=== PATIENT | female | born 1935 | race Hispanic/Latino ===

== ENCOUNTER 2018-01-25 16:38 | Inpatient (IN) | payer BC, MEDICARE ==
[2018-01-25 16:42] VITALS: BMI 30.2
[2018-01-25] MEDS ORDERED: Morphine 4 MG/ML VIAL IV STA (17:05)
--- NOTE | 2018-01-25 17:05 | C.PDOC ---
History Of Present Illness 82 y/o F with a PMHx of dementia, sent to the ED by PMD Dr. Jj due to generalized weakness and failure to thrive. All history obtained from patients family at bedside. Family reports the patient suffered a hip fracture 4 months ago and ever since has had worsening failure to thrive. Reports patient was compliant with PT and OT, but since completing therapy patient has been bed bound and refusing to get up. Patient has now developed a sacral decubitus ulcer , with increasing weakness and fatigued. Time Seen by Provider: 01/25/18 16:50 Chief Complaint (Nursing): Abnormal Skin Integrity History Per: Patient History/Exam Limitations: clinical condition (dementia) Onset/Duration Of Symptoms: Days Current Symptoms Are (Timing): Still Present Additional History Per: Family Past Medical History Reviewed: Historical Data, Nursing Documentation, Vital Signs Vital Signs: Last Vital Signs Temp 97.6 F 01/25/18 16:45 Pulse 97 H 01/25/18 16:45 Resp 20 01/25/18 16:45 BP 114/73 01/25/18 16:45 Pulse Ox 95 01/25/18 17:18 - Medical History PMH: Dementia, Fractures (Hip fx) Surgical History: Cholecystectomy Family History: States: Unknown Family Hx - Social History Hx Tobacco Use: No Hx Alcohol Use: No Hx Substance Use: No - Immunization History Hx Tetanus Toxoid Vaccination: No Hx Influenza Vaccination: No Hx Pneumococcal Vaccination: No Review Of Systems Review Of Systems: ROS cannot be obtained secondary to pt's inabilty to answer questions. (secondary to dementia) Constitutional: Negative for: Fever Cardiovascular: Negative for: Chest Pain Respiratory: Negative for: Shortness of Breath Gastrointestinal: Negative for: Vomiting, Diarrhea Musculoskeletal: Positive for: Back Pain (near sacral decubitus) Skin: Positive for: Other (ulcer to left ankle and hip) Neurological: Positive for: Weakness Physical Exam - Physical Exam Appears: No Acute Distress, Chronically Ill Skin: Warm, Dry Head: Atraumatic, Normacephalic Eye(s): bilateral: Normal Inspection Oral Mucosa: Moist Neck: Normal ROM Chest: Symmetrical Cardiovascular: Rhythm Regular, No Murmur Respiratory: Normal Breath Sounds, No Rales, No Rhonchi, No Wheezing Gastrointestinal/Abdominal: Soft, No Tenderness, No Distention Back: No Vertebral Tenderness, Other (Stage III sacral decubitus) Extremity: Normal ROM (moving all extremities), Capillary Refill (< 2 sec), Other (pressure ulcers to left lateral malleolus and left hip) Pulses: Left Dorsalis Pedis: Normal, Right Dorsalis Pedis: Normal Neurological/Psych: Other (Awake, alert) ED Course And Treatment - Laboratory Results Result Diagrams: 01/25/18 17:49 01/25/18 17:49 O2 Sat by Pulse Oximetry: 95 (on RA) Pulse Ox Interpretation: Normal Medical Decision Making Medical Decision Making: Impression: 82 year old female sent by PMD for fatigue, weakness, failure to thrive. PMD reports foul smelling urine so will give one dose of rocephin pending uculture. Plan: * CMP * CBC * Blood and urine cultures * Urinalysis * IV fluids * Morphine 4 mg IV Patient accepted to Dr. Jj's service, with PT consult requested Disposition - Disposition Disposition: HOSPITALIZED Disposition Time: 18:28 Condition: FAIR - Clinical Impression Clinical Impression: Failure to thrive, Sacral ulcer, UTI (urinary tract infection) - Scribe Statement The provider has reviewed the documentation as recorded by the Scribe (Mayte Clancy) Provider Attestation: All medical record entries made by the Scribe were at my direction and personally dictated by me. I have reviewed the chart and agree that the record accurately reflects my personal performance of the history, physical exam, medical decision making, and the department course for this patient. I have also personally directed, reviewed, and agree with the discharge instructions and disposition.
[2018-01-25] MEDS ORDERED: Sodium Chloride 0.9% 1,000 ML IV ONE (17:06)
[2018-01-25 17:54] LABS: BASO # 0.1 K/uL (0.0-0.2); BASO % 0.5 % (0.0-2.0); EOS # 0.2 K/uL (0.0-0.7); EOS % 1.4 % (0.0-4.0); HEMOGLOBIN 10.1 g/dL (11.0-16.0); LYMPH # 1.9 K/uL (1.0-4.3); LYMPH % 17.3 % (20.0-40.0); MEAN CELL VOLUME 84.9 fL (81.0-99.0); MEAN CORPUSCULAR HEMOGLOBIN 27.7 pg (27.0-31.0); MEAN CORPUSCULAR HGB CONC 32.7 g/dL (33.0-37.0); MEAN PLATELET VOLUME 7.6 fL (7.2-11.7); MONO # 0.8 K/uL (0.0-0.8); MONO % 7.7 % (0.0-10.0); NEUT # 8.1 K/uL (1.8-7.0); NEUT % 73.1 % (50.0-75.0); RBC 3.66 Mil/uL (3.80-5.20); RED CELL DISTRIBUTION WIDTH 15.2 % (11.5-14.5); WHITE BLOOD COUNT 11.1 K/uL (4.8-10.8)
[2018-01-25 18:01] LABS: SQUAMOUS EPITHIAL 2 /hpf (0-5); URINE BACTERIA MANY (<OCC); URINE BILIRUBIN NEGATIVE (NEGATIVE); URINE BLOOD 1+ (NEGATIVE); URINE CLARITY Hazy (Clear); URINE COLOR Amber (YELLOW); URINE GLUCOSE (UA) NORMAL (Normal); URINE LEUKOCYTE ESTERASE NEG Leu/uL (Negative); URINE PROTEIN NEGATIVE (NEGATIVE)
[2018-01-25 18:07] LABS: ALB/GLOB RATIO 0.9 (1.0-2.1); ALBUMIN 2.8 g/dL (3.5-5.0); ALT/SGPT 28 U/L (9-52); AST/SGOT 31 U/L (14-36); BLOOD UREA NITROGEN 25 mg/dL (7-17); CALCIUM 8.5 mg/dl (8.6-10.4); GFR NON-AFRICAN AMERICAN > 60
[2018-01-25] MEDS ORDERED: Potassium Chloride 20 mEq ER Tab PO STA (18:07)
[2018-01-25] MEDS ORDERED: cefTRIAXone IV 1 gm in Dextros 50 ML IVPB ONE (18:07)
[2018-01-25] MEDS ORDERED: Potassium Chloride 20 mEq ER Tab PO ONE (18:49)
[2018-01-25] MEDS ORDERED: cefTRIAXone 1 gm 1 GM/100 ML BAG IVPB ONE (18:49)
[2018-01-25 19:37] VITALS: RESP 20
--- NOTE | 2018-01-25 20:32 | CP.PCM.HP ---
History of Present Illness - History of Present Illness History of Present Illness: Chief complaint: Worsening sacral decubiti HPI: Patient is a 82-year-old female with history of anemia in the past, and also recent history of left trochanteric fracture, status post ORIF, following that the patient become mostly bedbound, in the house. Postoperatively patient was in the hospital, and was sent to home and received physical exercise and therapy in the house. Initially she was doing well. But later she started having worsening overall condition. Family was taking care of her in the house. Patient has hospital bed. But for the course of 3 days family noticed that the blister formation in the sacral area, gradually getting worse, and got black eschar now. She was also having significant skin changes in the both heel, both feet, and also in the left ankle. Patient was seen by weighmaster in the house. Patient now having increasing symptoms. Pain. Head legs and knees are contracted. Past medical history: Dementia, hypertension, anemia. Allergy no known drug allergy Personal history non-smoker nonalcoholic Patient is currently living in the house with the family. Review of system: Patient is somewhat confused. Dementia noted. Patient also has a severe contracted knees on bilateral. 's skin wounds noted. On examination: Patient is somewhat confused. Disoriented. Answering simple questions. Weight loss noted. Patient is somewhat dehydrated. Mucous membrane dryness noted. Chest good air entry Regular heart sounds Nontender abdomen. Patient has at least quarter size sacral decubiti involving in the sacral area, with the surrounding erythema. Also there is a skin excoriation in the medial aspect of the lower one third of the leg left side. Also noticed both feet on medial side of the foot showing black eschar especially heel as well as base of the first metatarsal bilaterally. Most likely patient has a stage II, and stage III decubiti Patient labs reviewed Urine analysis showing evidence of possible UTI Assessment: 82-year-old female with a history of anemia. History of dementia. Recent hip fracture. Now complicated with contractures of the bilateral knee and hips. Also bedridden. Now with worsening sacral decubiti. Malnourishment. Poor nutrition. Urinary tract infection likely acute associate with the some altered mental status mild. I suggested that patient needs to get antibiotic. Patient will need evaluation by the wound surgeon management. He will production P DVT prophylaxis. Feeding with assistance. Aspiration precautions. Patient will need home physical exercise. Further home care. And also management to avoid further worsening and healing the sacral decubiti. Protein supplementation and will follow the patient Present on Admission - Present on Admission Any Indicators Present on Admission: No History of DVT/PE: No History of Uncontrolled Diabetes: No Urinary Catheter: No Decubitus Ulcer Present: No Past Patient History - Past Medical History & Family History Past Medical History?: Yes - Past Social History Smoking Status: Never Smoked - NEUROLOGICAL Hx Dementia: Yes - MUSCULOSKELETAL/RHEUMATOLOGICAL Hx Falls: Yes - PSYCHIATRIC Hx Substance Use: No - SURGICAL HISTORY Hx Cholecystectomy: Yes - ANESTHESIA Hx Anesthesia: Yes Hx Anesthesia Reactions: No Hx Malignant Hyperthermia: No Meds Allergies/Adverse Reactions: Allergies Allergy/AdvReac Type Severity Reaction Status Date / Time No Known Allergies Allergy Verified 01/25/18 16:41 Results - Vital Signs Recent Vital Signs: Last Vital Signs Temp 98.2 F 01/25/18 19:36 Pulse 86 01/25/18 19:36 Resp 20 01/25/18 19:36 BP 166/83 H 01/25/18 19:36 Pulse Ox 96 01/25/18 19:36 - Labs Result Diagrams: 01/25/18 17:49 01/25/18 17:49 Labs: Laboratory Results - last 24 hr 01/25/18 01/25/18 01/25/18 17:49 17:49 17:49 WBC 11.1 H RBC 3.66 L Hgb 10.1 L Hct 31.0 L MCV 84.9 MCH 27.7 MCHC 32.7 L RDW 15.2 H Plt Count 459 H MPV 7.6 Neut % (Auto) 73.1 Lymph % (Auto) 17.3 L [place] % (Auto) 7.7 Eos % (Auto) 1.4 Baso % (Auto) 0.5 Neut # (Auto) 8.1 H Lymph # (Auto) 1.9 [place] # (Auto) 0.8 Eos # (Auto) 0.2 Baso # (Auto) 0.1 Sodium 144 Potassium 3.5 L Chloride 106 Carbon Dioxide 28 Anion Gap 13 BUN 25 H Creatinine 0.6 L Est GFR ( Amer) > 60 Est GFR (Non-Af Amer) > 60 Random Glucose 116 H Calcium 8.5 L Total Bilirubin 0.7 AST 31 ALT 28 Alkaline Phosphatase 89 Total Protein 5.9 L Albumin 2.8 L Globulin 3.1 Albumin/Globulin Ratio 0.9 L Urine Color Sandy Urine Clarity Hazy Urine pH 5.0 Ur Specific [place] 1.020 Urine Protein Negative Urine Glucose (UA) Normal Urine Ketones Trace Urine Blood 1+ H Urine Nitrate Negative Urine Bilirubin Negative Urine Urobilinogen 4.0 H Ur Leukocyte Esterase Neg Urine WBC (Auto) 8 H Urine RBC (Auto) 1 Ur Squamous Epith Cells 2 Urine Bacteria Many H
[2018-01-26] MEDS ORDERED: Collagenase 250 Units/gm Ointment(30 gm) TOP SCH (10:00)
[2018-01-26] MEDS: Enoxaparin 40 mg Syringe SC SCH (10:04)
--- NOTE | 2018-01-26 13:24 | CP.PCM.CON ---
History of Present Illness - History of Present Illness History of Present Illness: Podiatry Consult note: Dr. Boggs 82 year old female patient with PMHx of Dementia, hypertension, anemia was seen and evaluated with granddaughter at bedside for stable non-infected ulceration to the left leg and heel. Patient's granddaughter reports that she fell at home few months ago and sustained a left trochanteric fracture. States that she received a ORIF on the left hip. Reports that she mainly became bed bound after the incident and developed a sacral ulcer which may have became infected. Granddaughter reports that she was brought to the hospital for the sacral wound. Patient is alert and awake but does not respond to verbal stimuli. Appears to be resting comfortably in bed and appears in no acute distress. Granddaughter reports that she has very small blister on the left leg and heel for which she was seen by a proj mgr at home. Denies of the patient complaining of pain from the left LE. No recent F/N/V/C/SOB/CP/headache. Denies of any other pedal complains at this time. PMHx: Dementia, hypertension, anemia PSHx: Left hip ORIF Allergies: NKDA SHx: Denies smoking, EtOH or illicit drug usage, lives home with family Review of Systems - Constitutional Constitutional: As Per HPI Past Patient History - Past Medical History & Family History Past Medical History?: Yes - Past Social History Smoking Status: Never Smoked - NEUROLOGICAL Hx Dementia: Yes - MUSCULOSKELETAL/RHEUMATOLOGICAL Hx Falls: Yes - PSYCHIATRIC Hx Substance Use: No - SURGICAL HISTORY Hx Cholecystectomy: Yes - ANESTHESIA Hx Anesthesia: Yes Hx Anesthesia Reactions: No Hx Malignant Hyperthermia: No Meds Allergies/Adverse Reactions: Allergies Allergy/AdvReac Type Severity Reaction Status Date / Time No Known Allergies Allergy Verified 01/25/18 16:41 - Medications Medications: Current Medications Collagenase (Santyl) 0 gm TOP DAILY [facility] Last Admin: 01/26/18 10:06 Dose: 1 applic Enoxaparin Sodium (Lovenox) 40 mg SC DAILY [facility] Last Admin: 01/26/18 10:04 Dose: 40 mg Famotidine (Pepcid) 20 mg PO DAILY [facility] Last Admin: 01/26/18 10:03 Dose: 20 mg Ceftriaxone Sodium 1 gm/ (Sodium Chloride) 100 mls @ 100 mls/hr IVPB DAILY [facility] PRN Reason: Protocol Last Admin: 01/26/18 10:03 Dose: 100 mls/hr Pneumococcal Polyvalent Vaccine (Pneumovax 23 Vaccine) 0.5 ml IM .ONCE ONE Stop: 01/28/18 12:28 Physical Exam - Constitutional Appears: Well, Non-toxic, No Acute Distress - Extremities Exam Additional comments: Patient resting in bed with head, hips, and knees contracted Bilateral LE exam VASC: DP/PT pulses are palpable 2/4, Cap refill time: < 3 sec to all digits, Temp gradient: warm to cool from proximal to distal, no pitting or non-pitting edema noted DERM: Circular wound measuring approx. 1 cm x 1 cm x 0.2 cm noted on the medial aspect of the left heel, wound base is mainly grannular with island of necrosis in the center, no active drainage, no malodor, no purulence, no tunneling, no tracking, no jeanmarie-wound erythema, no jeanmarie-wound maceration or hyperkeratosis, no clinical suspicion of active infection; Very superficial epidermal shedding on the medial aspect of the left distal leg, no active drainage, no clinical suspicion of active infection NEURO: Protective sensation grossly intact ORTHO: AROM at the ankle joint within normal limit, mild pain on palpation of the heel wound - Neurological Exam Neurological exam: Alert, Oriented x3 - Psychiatric Exam Psychiatric exam: Normal Affect, Normal Mood Results - Vital Signs Recent Vital Signs: Last Vital Signs Temp 98.4 F 01/26/18 11:54 Pulse 89 01/26/18 11:54 Resp 20 01/26/18 11:54 BP 149/94 H 01/26/18 11:54 Pulse Ox 97 01/26/18 11:54 - Labs Result Diagrams: 01/25/18 17:49 01/25/18 17:49 Labs: Laboratory Results - last 24 hr 01/25/18 01/25/18 01/25/18 17:49 17:49 17:49 WBC 11.1 H RBC 3.66 L Hgb 10.1 L Hct 31.0 L MCV 84.9 MCH 27.7 MCHC 32.7 L RDW 15.2 H Plt Count 459 H MPV 7.6 Neut % (Auto) 73.1 Lymph % (Auto) 17.3 L [place] % (Auto) 7.7 Eos % (Auto) 1.4 Baso % (Auto) 0.5 Neut # (Auto) 8.1 H Lymph # (Auto) 1.9 [place] # (Auto) 0.8 Eos # (Auto) 0.2 Baso # (Auto) 0.1 Sodium 144 Potassium 3.5 L Chloride 106 Carbon Dioxide 28 Anion Gap 13 BUN 25 H Creatinine 0.6 L Est GFR ( Amer) > 60 Est GFR (Non-Af Amer) > 60 Random Glucose 116 H Calcium 8.5 L Total Bilirubin 0.7 AST 31 ALT 28 Alkaline Phosphatase 89 Total Protein 5.9 L Albumin 2.8 L Globulin 3.1 Albumin/Globulin Ratio 0.9 L Urine Color [place] Urine Clarity Hazy Urine pH 5.0 Ur Specific [place] 1.020 Urine Protein Negative Urine Glucose (UA) Normal Urine Ketones Trace Urine Blood 1+ H Urine Nitrate Negative Urine Bilirubin Negative Urine Urobilinogen 4.0 H Ur Leukocyte Esterase Neg Urine WBC (Auto) 8 H Urine RBC (Auto) 1 Ur Squamous Epith Cells 2 Urine Bacteria Many H Assessment & Plan - Assessment and Plan (Free Text) Assessment: 82 year old female with PMHx of dementia, hypertension, anemia was evaluated for non-infected left LE wound (Mtz 1) secondary to pressure Plan: Patient seen and evaluated Discussed plan with attending Dr. Boggs Labs, vitals and charts reviewed - afebrile, elevated leukocytosis Patient is currently on ceftriaxone qd - ID on board Lower extremity wound appear non-infected at this time Wounds cleaned with saline and dressing applied using medihoney, DSD Santyl ordered Patient is stable from podiatry standpoint No acute intervention needed at this time Will continue to provide local wound care while patient is in house Thank you for the podiatry consult and allowing to take part in patient care - Date & Time Date: 01/26/18 Time: 13:39
[2018-01-27] MEDS: Enoxaparin 40 mg Syringe SC SCH (10:32)
[2018-01-27] MEDS: Collagenase 250 Units/gm Ointment(30 gm) TOP SCH (11:06)
--- NOTE | 2018-01-27 13:56 | CP.PCM.PN ---
Subjective - Date & Time of Evaluation Date of Evaluation: 01/27/18 Time of Evaluation: 13:53 - Subjective Subjective: Podiatry Progress note: Dr. Boggs 82 F seen and evaluated with Dr. Boggs at bedside for stable non-infected ulcerations to the left leg and heel. Appears to be resting comfortably in bed and in no acute distress. Patient's granddaughter and son at bedside during visitation. Patient is awake. No recent F/N/V/C/SOB/CP/headache. Denies of any other pedal complains at this time. Objective - Vital Signs/Intake and Output Vital Signs (last 24 hours): Temp Pulse Resp BP Pulse Ox 98 F 86 20 156/69 H 96 01/27/18 08:12 01/27/18 08:12 01/27/18 08:12 01/27/18 08:12 01/27/18 08:12 Intake and Output: 01/27/18 01/27/18 06:59 18:59 Intake Total 220 Balance 220 - Medications Medications: Current Medications Collagenase (Santyl) 0 gm TOP DAILY [facility] Last Admin: 01/27/18 11:06 Dose: 1 applic Enoxaparin Sodium (Lovenox) 40 mg SC DAILY [facility] Last Admin: 01/27/18 10:32 Dose: 40 mg Famotidine (Pepcid) 20 mg PO DAILY [facility] Last Admin: 01/27/18 10:32 Dose: 20 mg Ceftriaxone Sodium 1 gm/ (Sodium Chloride) 100 mls @ 100 mls/hr IVPB DAILY [facility] PRN Reason: Protocol Last Admin: 01/27/18 10:32 Dose: 100 mls/hr Pneumococcal Polyvalent Vaccine (Pneumovax 23 Vaccine) 0.5 ml IM .ONCE ONE Stop: 01/28/18 12:28 - Labs Labs: 01/25/18 17:49 01/25/18 17:49 - Constitutional Appears: Well, Non-toxic, No Acute Distress - Extremities Exam Extremities Exam: absent: Calf Tenderness Additional comments: Patient resting in bed with head, hips, and knees contracted Bilateral LE exam VASC: DP/PT pulses are palpable 2/4, Cap refill time: < 3 sec to all digits, Temp gradient: warm to cool from proximal to distal, no pitting or non-pitting edema noted DERM: Circular wound measuring approx. 1 cm x 1 cm x 0.2 cm noted on the medial aspect of the left heel, wound base is mainly grannular with island of necrosis in the center, no active drainage, no malodor, no purulence, no tunneling, no tracking, no jeanmarie-wound erythema, no jeanmarie-wound maceration or hyperkeratosis, no clinical suspicion of active infection; Very superficial epidermal shedding on the medial aspect of the left distal leg, no active drainage, no clinical suspicion of active infection NEURO: Protective sensation grossly intact ORTHO: AROM at the ankle joint within normal limit, mild pain on palpation of the heel wound - Neurological Exam Neurological Exam: Awake - Psychiatric Exam Psychiatric exam: Normal Affect, Normal Mood Assessment and Plan - Assessment and Plan (Free Text) Assessment: 82 year old female with PMHx of dementia, hypertension, anemia was evaluated for non-infected left LE wound (Mtz 1) secondary to pressure Plan: Patient seen and evaluated with attending Dr. Boggs Labs, vitals and charts reviewed Patient is currently on ceftriaxone qd - ID on board Lower extremity wound appear non-infected at this time Wounds cleaned with saline, applied Santyl, dsd, abd and kerlix Patient is stable from podiatry standpoint No surgical intervention needed at this time Will continue to provide local wound care while patient is in house
[2018-01-28] MEDS: Enoxaparin 40 mg Syringe SC SCH (09:49)
[2018-01-28] MEDS: Collagenase 250 Units/gm Ointment(30 gm) TOP SCH (11:30)
[2018-01-28] MEDS ORDERED: Pneumococcal 23-Valent Vaccine IM ONE (12:27)
--- NOTE | 2018-01-28 14:46 | CP.PCM.PN ---
Subjective - Date & Time of Evaluation Date of Evaluation: 01/28/18 Time of Evaluation: 16:12 - Subjective Subjective: Podiatry Progress note: Dr. Boggs 82 F seen and evaluated with Dr. Boggs at bedside for stable non-infected multiple ulcerations to the lower left leg and heel. Appears to be resting comfortably in bed and in no acute distress. Patient's son at bedside during visitation. No recent F/N/V/C/SOB/CP/headache. Denies of any other pedal c omplains at this time. Objective - Vital Signs/Intake and Output Vital Signs (last 24 hours): Temp Pulse Resp BP Pulse Ox 98.1 F 96 H 20 145/75 96 01/28/18 07:00 01/28/18 07:00 01/28/18 07:00 01/28/18 07:00 01/28/18 07:00 Intake and Output: 01/28/18 01/28/18 06:59 18:59 Intake Total 200 100 Balance 200 100 - Medications Medications: Current Medications Collagenase (Santyl) 0 gm TOP DAILY [facility] Last Admin: 01/28/18 11:30 Dose: 1 applic Enoxaparin Sodium (Lovenox) 40 mg SC DAILY [facility] Last Admin: 01/28/18 09:49 Dose: 40 mg Famotidine (Pepcid) 20 mg PO DAILY [facility] Last Admin: 01/28/18 09:49 Dose: 20 mg Ceftriaxone Sodium 1 gm/ (Sodium Chloride) 100 mls @ 100 mls/hr IVPB DAILY [facility] PRN Reason: Protocol Last Admin: 01/28/18 09:49 Dose: 100 mls/hr - Labs Labs: 01/25/18 17:49 01/25/18 17:49 - Constitutional Appears: Well, Non-toxic, No Acute Distress - Extremities Exam Extremities Exam: absent: Calf Tenderness Additional comments: Patient resting in bed with head, hips, and knees contracted Bilateral LE exam VASC: DP/PT pulses are palpable 2/4, Cap refill time: < 3 sec to all digits, Temp gradient: warm to cool from proximal to distal, no pitting or non-pitting edema noted DERM: Circular wound measuring approx. 1 cm x 1 cm x 0.2 cm noted on the medial aspect of the left heel, wound base is mainly grannular with island of necrosis in the center, no active drainage, no malodor, no purulence, no tunneling, no tracking, no jeanmarie-wound erythema, no jeanmarie-wound maceration or hyperkeratosis, no clinical suspicion of active infection; Very superficial epidermal shedding on the medial aspect of the left distal leg, no active drainage, no clinical suspicion of active infection NEURO: Protective sensation grossly intact ORTHO: AROM at the ankle joint within normal limit, mild pain on palpation of the heel wound - Psychiatric Exam Psychiatric exam: Normal Affect Assessment and Plan - Assessment and Plan (Free Text) Assessment: 82 year old female with PMHx of dementia, hypertension, anemia was evaluated for non-infected left LE wound (Mtz 1) secondary to pressure Plan: Patient seen and evaluated with attending Dr. Boggs Labs, vitals and charts reviewed Patient is currently on ceftriaxone qd - ID on board Lower extremity wound appear non-infected at this time Wounds cleaned with saline, applied Santyl, dsd, abd and kerlix Patient is stable from podiatry standpoint No surgical intervention needed at this time Will continue to provide local wound care while patient is in house
--- NOTE | 2018-01-29 10:12 | CP.PCM.PN ---
Subjective - Date & Time of Evaluation Date of Evaluation: 01/29/18 Time of Evaluation: 10:09 - Subjective Subjective: Podiatry Progress note: Dr. Boggs 82 year old female patient seen and evaluated at bedside for stable non-infected multiple ulcerations to the lower left leg and heel. Appears to be resting comfortably in bed and in no acute distress. Patient's family at bedside during visitation. No recent F/N/V/C/SOB/CP/headache. Denies of any other pedal complains at this time. Objective - Vital Signs/Intake and Output Vital Signs (last 24 hours): Temp Pulse Resp BP Pulse Ox 98.3 F 88 20 104/66 97 01/29/18 08:21 01/29/18 08:21 01/29/18 08:21 01/29/18 08:21 01/29/18 08:21 - Medications Medications: Current Medications Collagenase (Santyl) 0 gm TOP DAILY [facility] Last Admin: 01/28/18 11:30 Dose: 1 applic Enoxaparin Sodium (Lovenox) 40 mg SC DAILY [facility] Last Admin: 01/28/18 09:49 Dose: 40 mg Famotidine (Pepcid) 20 mg PO DAILY [facility] Last Admin: 01/28/18 09:49 Dose: 20 mg Ceftriaxone Sodium 1 gm/ (Sodium Chloride) 100 mls @ 100 mls/hr IVPB DAILY [facility] PRN Reason: Protocol Last Admin: 01/28/18 09:49 Dose: 100 mls/hr - Labs Labs: 01/25/18 17:49 01/25/18 17:49 - Constitutional Appears: Well, Non-toxic, No Acute Distress - Extremities Exam Additional comments: Patient resting in bed with head, hips, and knees contracted Bilateral LE exam VASC: DP/PT pulses are palpable 2/4, Cap refill time: < 3 sec to all digits, Temp gradient: warm to cool from proximal to distal, no pitting or non-pitting edema noted DERM: Circular wound measuring approx. 1 cm x 1 cm x 0.2 cm noted on the medial aspect of the left heel, wound base is mainly grannular with island of necrosis in the center, no active drainage, no malodor, no purulence, no tunneling, no tracking, no jeanmarie-wound erythema, no jeanmarie-wound maceration or hyperkeratosis, no clinical suspicion of active infection; Very superficial epidermal shedding on the medial aspect of the left distal leg, no active drainage, no clinical suspicion of active infection NEURO: Protective sensation grossly intact ORTHO: AROM at the ankle joint within normal limit, mild pain on palpation of the heel wound - Neurological Exam Neurological Exam: Alert, Awake, Oriented x3 - Psychiatric Exam Psychiatric exam: Normal Affect, Normal Mood Assessment and Plan - Assessment and Plan (Free Text) Assessment: 82 year old female was evaluated for non-infected left LE wound (Mtz 1) secondary to pressure Plan: Patient seen and evaluated Discussed plan with attending Dr. Boggs Labs, vitals and charts reviewed Patient is currently on ceftriaxone qd - ID on board Lower extremity wound appear non-infected at this time Wounds cleaned with saline, applied Santyl, dsd, abd and kerlix Patient is stable from podiatry standpoint No surgical intervention needed at this time Will continue to provide local wound care while patient is in house
[2018-01-29] MEDS: Enoxaparin 40 mg Syringe SC SCH (10:28)
[2018-01-29] MEDS: Collagenase 250 Units/gm Ointment(30 gm) TOP SCH (10:29)
--- NOTE | 2018-01-29 11:35 | CARD ---
APPROVED REPORT Date of service: 01/25/2018 EKG Measurement Heart [id number] <Conclusion> Undetermined rhythm Possible Anterior infarct, age undetermined Abnormal ECG
--- NOTE | 2018-01-30 16:56 | CP.PCM.PN ---
Subjective - Date & Time of Evaluation Date of Evaluation: 01/30/18 Time of Evaluation: 16:54 - Subjective Subjective: Podiatry Progress note: Dr. Boggs 82 year old female patient seen and evaluated at bedside for stable non-infected multiple ulcerations to the lower left leg and heel. Patient's family at bedside during visitation. Appears to be resting comfortably in bed and in no acute distress. No recent F/N/V/C/SOB/CP/headache. Denies of any other pedal complains at this time. Objective - Vital Signs/Intake and Output Vital Signs (last 24 hours): Temp Pulse Resp BP Pulse Ox 98.1 F 88 20 117/63 97 01/30/18 15:00 01/30/18 15:00 01/30/18 15:00 01/30/18 15:00 01/30/18 15:00 Intake and Output: 01/30/18 01/30/18 06:59 18:59 Intake Total 120 220 Output Total 100 Balance 20 220 - Medications Medications: Current Medications Collagenase (Santyl) 0 gm TOP DAILY [facility] Last Admin: 01/29/18 10:29 Dose: 1 applic Enoxaparin Sodium (Lovenox) 40 mg SC DAILY [facility] Last Admin: 01/29/18 10:28 Dose: 40 mg Famotidine (Pepcid) 20 mg PO DAILY [facility] Last Admin: 01/29/18 10:28 Dose: 20 mg Ceftriaxone Sodium 1 gm/ (Sodium Chloride) 100 mls @ 100 mls/hr IVPB DAILY [facility]; Protocol Last Admin: 01/29/18 10:28 Dose: 100 mls/hr - Labs Labs: 01/25/18 17:49 01/25/18 17:49 - Constitutional Appears: Well, Non-toxic, No Acute Distress - Extremities Exam Additional comments: Patient resting in bed with head, hips, and knees contracted Bilateral LE exam VASC: DP/PT pulses are palpable 2/4, Cap refill time: < 3 sec to all digits, Temp gradient: warm to cool from proximal to distal, no pitting or non-pitting edema noted DERM: Circular wound measuring approx. 1 cm x 1 cm x 0.2 cm noted on the medial aspect of the left heel, wound base is mainly grannular with island of necrosis in the center, no active drainage, no malodor, no purulence, no tunneling, no tracking, no jeanmarie-wound erythema, no jeanmarie-wound maceration or hyperkeratosis, no clinical suspicion of active infection; Very superficial epidermal shedding on the medial aspect of the left distal leg, no active drainage, no clinical suspicion of active infection NEURO: Protective sensation grossly intact ORTHO: AROM at the ankle joint within normal limit, mild pain on palpation of the heel wound - Neurological Exam Neurological Exam: Alert, Awake, Oriented x3 - Psychiatric Exam Psychiatric exam: Normal Affect, Normal Mood Assessment and Plan - Assessment and Plan (Free Text) Assessment: 82 year old female was evaluated for non-infected left LE wound (Mtz 1) secondary to pressure Plan: Patient seen and evaluated Discussed plan with attending Dr. Boggs Labs, vitals and charts reviewed Patient is currently on ceftriaxone qd - ID on board Lower extremity wound appear non-infected at this time Wounds cleaned with saline, applied Santyl, dsd, abd and kerlix Patient is stable from podiatry standpoint No surgical intervention needed at this time Will continue to provide local wound care while patient is in house
--- NOTE | 2018-01-30 22:18 | CP.PCM.PN ---
Subjective - Date & Time of Evaluation Date of Evaluation: 01/27/18 Time of Evaluation: 22:18 - Subjective Subjective: Patient is feeling okay. She is awake and responding. Family at bedside. Still having contractures bilateral lower extremities On antibiotic for urinary tract infection. Spoke to the aids social worker. Patient will be needing wound management. Family discussed about the overall prognosis and will follow-up the patient Objective - Vital Signs/Intake and Output Vital Signs (last 24 hours): Temp Pulse Resp BP Pulse Ox 98.1 F 88 20 117/63 97 01/30/18 15:00 01/30/18 15:00 01/30/18 15:00 01/30/18 15:00 01/30/18 15:00 Intake and Output: 01/30/18 01/31/18 18:59 06:59 Intake Total 220 Balance 220 - Medications Medications: Current Medications Collagenase (Santyl) 0 gm TOP DAILY [facility] Last Admin: 01/29/18 10:29 Dose: 1 applic Enoxaparin Sodium (Lovenox) 40 mg SC DAILY [facility] Last Admin: 01/29/18 10:28 Dose: 40 mg Famotidine (Pepcid) 20 mg PO DAILY [facility] Last Admin: 01/29/18 10:28 Dose: 20 mg Ceftriaxone Sodium 1 gm/ (Sodium Chloride) 100 mls @ 100 mls/hr IVPB DAILY [facility]; Protocol Last Admin: 01/29/18 10:28 Dose: 100 mls/hr - Labs Labs: 01/25/18 17:49 01/25/18 17:49
--- NOTE | 2018-01-30 22:18 | CP.PCM.PN ---
Subjective - Date & Time of Evaluation Date of Evaluation: 01/26/18 Time of Evaluation: 22:17 - Subjective Subjective: The patient is more awake and responding. Family at bedside. Spoke to the family in detail. Podiatry evaluation appreciated. Patient will be needing wound care management. Vital signs stable. Continue the current regimen patient. Bedsore management Objective - Vital Signs/Intake and Output Vital Signs (last 24 hours): Temp Pulse Resp BP Pulse Ox 98.1 F 88 20 117/63 97 01/30/18 15:00 01/30/18 15:00 01/30/18 15:00 01/30/18 15:00 01/30/18 15:00 Intake and Output: 01/30/18 01/31/18 18:59 06:59 Intake Total 220 Balance 220 - Medications Medications: Current Medications Collagenase (Santyl) 0 gm TOP DAILY [facility] Last Admin: 01/29/18 10:29 Dose: 1 applic Enoxaparin Sodium (Lovenox) 40 mg SC DAILY [facility] Last Admin: 01/29/18 10:28 Dose: 40 mg Famotidine (Pepcid) 20 mg PO DAILY [facility] Last Admin: 01/29/18 10:28 Dose: 20 mg Ceftriaxone Sodium 1 gm/ (Sodium Chloride) 100 mls @ 100 mls/hr IVPB DAILY [facility]; Protocol Last Admin: 01/29/18 10:28 Dose: 100 mls/hr - Labs Labs: 01/25/18 17:49 01/25/18 17:49
--- NOTE | 2018-01-30 22:19 | CP.PCM.PN ---
Subjective - Date & Time of Evaluation Date of Evaluation: 01/28/18 Time of Evaluation: 22:19 - Subjective Subjective: Patient is feeling okay. She is awake and responding. Family at bedside. Still having contractures bilateral lower extremities On antibiotic for urinary tract infection. Spoke to the social welfare administrator. Patient will be needing wound management. Family discussed about the overall prognosis and will follow-up the patient Objective - Vital Signs/Intake and Output Vital Signs (last 24 hours): Temp Pulse Resp BP Pulse Ox 98.1 F 88 20 117/63 97 01/30/18 15:00 01/30/18 15:00 01/30/18 15:00 01/30/18 15:00 01/30/18 15:00 Intake and Output: 01/30/18 01/31/18 18:59 06:59 Intake Total 220 Balance 220 - Medications Medications: Current Medications Collagenase (Santyl) 0 gm TOP DAILY [facility] Last Admin: 01/29/18 10:29 Dose: 1 applic Enoxaparin Sodium (Lovenox) 40 mg SC DAILY [facility] Last Admin: 01/29/18 10:28 Dose: 40 mg Famotidine (Pepcid) 20 mg PO DAILY [facility] Last Admin: 01/29/18 10:28 Dose: 20 mg Ceftriaxone Sodium 1 gm/ (Sodium Chloride) 100 mls @ 100 mls/hr IVPB DAILY [facility]; Protocol Last Admin: 01/29/18 10:28 Dose: 100 mls/hr - Labs Labs: 01/25/18 17:49 01/25/18 17:49
--- NOTE | 2018-01-30 22:19 | CP.PCM.PN ---
Subjective - Date & Time of Evaluation Date of Evaluation: 01/29/18 Time of Evaluation: 22:20 - Subjective Subjective: I spoke to the wound nurse management, he explained to the family in detail about the wound management in the house. Patient is having sacral decubiti in the sacral region, as well as in the multiple small ecchymotic skin lesions in the foot bilaterally. Patient was seen by a batterboard setter. Patient will need a more aggressive management. Clinical examination is unremarkable. Chest good air entry regular heart tone nontender abdomen. Patient has a contractures of the hip as well as bilateral knee. Patient will need a hospital bed, air mattress and management of the wound bedsore in the house. We will continue to monitor. And will follow the patient Objective - Vital Signs/Intake and Output Vital Signs (last 24 hours): Temp Pulse Resp BP Pulse Ox 98.1 F 88 20 117/63 97 01/30/18 15:00 01/30/18 15:00 01/30/18 15:00 01/30/18 15:00 01/30/18 15:00 Intake and Output: 01/30/18 01/31/18 18:59 06:59 Intake Total 220 Balance 220 - Medications Medications: Current Medications Collagenase (Santyl) 0 gm TOP DAILY [facility] Last Admin: 01/29/18 10:29 Dose: 1 applic Enoxaparin Sodium (Lovenox) 40 mg SC DAILY [facility] Last Admin: 01/29/18 10:28 Dose: 40 mg Famotidine (Pepcid) 20 mg PO DAILY [facility] Last Admin: 01/29/18 10:28 Dose: 20 mg Ceftriaxone Sodium 1 gm/ (Sodium Chloride) 100 mls @ 100 mls/hr IVPB DAILY [facility]; Protocol Last Admin: 01/29/18 10:28 Dose: 100 mls/hr - Labs Labs: 01/25/18 17:49 01/25/18 17:49
--- NOTE | 2018-01-30 22:22 | CP.PCM.PN ---
Subjective - Date & Time of Evaluation Date of Evaluation: 01/30/18 Time of Evaluation: 22:21 - Subjective Subjective: I examined the patient today. Patient's daughter at bedside. I spoke to her in detail. Most of the arrangement was made in the house for further management off bedsore, and also hospital bed. Patient will be possibly discharge home tomorrow. She will continue to receive wound management Visiting nurse. Physical therapy. I advised the patient family for increasing the feeding. Aspiration precaution advised. Will follow the patient. Objective - Vital Signs/Intake and Output Vital Signs (last 24 hours): Temp Pulse Resp BP Pulse Ox 98.1 F 88 20 117/63 97 01/30/18 15:00 01/30/18 15:00 01/30/18 15:00 01/30/18 15:00 01/30/18 15:00 Intake and Output: 01/30/18 01/31/18 18:59 06:59 Intake Total 220 Balance 220 - Medications Medications: Current Medications Collagenase (Santyl) 0 gm TOP DAILY [facility] Last Admin: 01/29/18 10:29 Dose: 1 applic Enoxaparin Sodium (Lovenox) 40 mg SC DAILY [facility] Last Admin: 01/29/18 10:28 Dose: 40 mg Famotidine (Pepcid) 20 mg PO DAILY [facility] Last Admin: 01/29/18 10:28 Dose: 20 mg Ceftriaxone Sodium 1 gm/ (Sodium Chloride) 100 mls @ 100 mls/hr IVPB DAILY [facility]; Protocol Last Admin: 01/29/18 10:28 Dose: 100 mls/hr - Labs Labs: 01/25/18 17:49 01/25/18 17:49
[2018-01-31 08:10] VITALS: BP 129/62; PULSE 88; TEMP 97.8; O2SAT 98
[2018-01-31] MEDS: Enoxaparin 40 mg Syringe SC SCH (09:59)
[2018-01-31] MEDS: Collagenase 250 Units/gm Ointment(30 gm) TOP SCH (10:10)
[2018-01-31] MEDS: Pneumococcal 23-Valent Vaccine IM ONE ×2 (13:02→13:05)
--- NOTE | 2018-01-31 17:32 | CP.PCM.PN ---
Subjective - Date & Time of Evaluation Date of Evaluation: 01/31/18 Time of Evaluation: 11:00 Objective - Vital Signs/Intake and Output Vital Signs (last 24 hours): Temp Pulse Resp BP Pulse Ox 97.8 F 88 20 129/62 98 01/31/18 08:06 01/31/18 08:06 01/31/18 08:06 01/31/18 08:06 01/31/18 08:06 Intake and Output: 01/31/18 01/31/18 06:59 18:59 Intake Total 300 Output Total 300 250 Balance -300 50 - Labs Labs: 01/25/18 17:49 01/25/18 17:49 Assessment and Plan - Assessment and Plan (Free Text) Assessment: 82 year old female admitted with sacral decubitus, UTI, iv antibiotics completed, seen and examined. Awake, responsive, needs total care. Discharge plan to home today. Special mattress will be delivered to home. The son at the bedside, verbalized understanding of the instructions. Home care, VNS arranged to change dressings 3x a week. Advised to follow up with PMD in 1 week.
--- NOTE | 2018-01-31 17:40 | CP.PCM.PN ---
Subjective - Date & Time of Evaluation Date of Evaluation: 01/31/18 Time of Evaluation: 10:15 - Subjective Subjective: Podiatry Progress note: Dr. Boggs 82 year old female patient seen and evaluated at bedside for stable non-infected multiple ulcerations to the lower left leg and heel. Patient's family at bedside during visitation. Appears to be resting comfortably in bed and in no acute distress. No recent F/N/V/C/SOB/CP/headache. Denies of any other pedal complains at this time. Objective - Vital Signs/Intake and Output Vital Signs (last 24 hours): Temp Pulse Resp BP Pulse Ox 97.8 F 88 20 129/62 98 01/31/18 08:06 01/31/18 08:06 01/31/18 08:06 01/31/18 08:06 01/31/18 08:06 Intake and Output: 01/31/18 01/31/18 06:59 18:59 Intake Total 300 Output Total 300 250 Balance -300 50 - Labs Labs: 01/25/18 17:49 01/25/18 17:49 - Constitutional Appears: Well, Non-toxic, No Acute Distress - Head Exam Head Exam: ATRAUMATIC, NORMOCEPHALIC - Extremities Exam Additional comments: Patient resting in bed with head, hips, and knees contracted Bilateral LE exam VASC: DP/PT pulses are palpable 2/4, Cap refill time: < 3 sec to all digits, Temp gradient: warm to cool from proximal to distal, no pitting or non-pitting edema noted DERM: Circular wound measuring approx. 1 cm x 1 cm x 0.2 cm noted on the medial aspect of the left heel, wound base is mainly grannular with island of necrosis in the center, no active drainage, no malodor, no purulence, no tunneling, no tracking, no jeanmarie-wound erythema, no jeanmarie-wound maceration or hyperkeratosis, no clinical suspicion of active infection; Very superficial epidermal shedding on the medial aspect of the left distal leg, no active drainage, no clinical suspicion of active infection NEURO: Protective sensation grossly intact ORTHO: AROM at the ankle joint within normal limit, mild pain on palpation of the heel wound - Neurological Exam Neurological Exam: Alert, Awake, Oriented x3 - Psychiatric Exam Psychiatric exam: Normal Affect, Normal Mood Assessment and Plan - Assessment and Plan (Free Text) Assessment: 82 year old female was evaluated for non-infected left LE wound (Mtz 1) secondary to pressure Plan: Patient seen and evaluated Discussed plan with attending Dr. Boggs Labs, vitals and charts reviewed Patient is currently on ceftriaxone qd - ID on board Lower extremity wound appear non-infected at this time Wounds cleaned with saline, applied Santyl, dsd, abd and kerlix Patient is stable from podiatry standpoint No surgical intervention needed at this time Will continue to provide local wound care while patient is in house
--- NOTE | 2018-01-31 17:55 | CP.PCM.DIS ---
Provider - Provider Date of Admission: 01/25/18 17:06 Attending physician: Jose Mitchell MD Time Spent in preparation of Discharge (in minutes): 35 Hospital Course - Lab Results Lab Results: Micro Results 01/26/18 06:26 Blood Blood Culture - Final NO GROWTH AFTER 5 DAYS 01/26/18 06:26 Blood Gram Stain - Final TEST NOT PERFORMED 01/26/18 06:26 Blood Blood Culture - Final NO GROWTH AFTER 5 DAYS 01/26/18 06:26 Blood Gram Stain - Final TEST NOT PERFORMED 01/25/18 17:49 Urine,Catheterized Urine Culture - Final Escherichia Coli Most Recent Lab Values WBC 11.1 K/uL (4.8-10.8) H 01/25/18 17:49 RBC 3.66 Mil/uL (3.80-5.20) L 01/25/18 17:49 Hgb 10.1 g/dL (11.0-16.0) L 01/25/18 17:49 Hct 31.0 % (34.0-47.0) L 01/25/18 17:49 MCV 84.9 fL (81.0-99.0) 01/25/18 17:49 MCH 27.7 pg (27.0-31.0) 01/25/18 17:49 MCHC 32.7 g/dL (33.0-37.0) L 01/25/18 17:49 RDW 15.2 % (11.5-14.5) H 01/25/18 17:49 Plt Count 459 K/uL (130-400) H 01/25/18 17:49 MPV 7.6 fL (7.2-11.7) 01/25/18 17:49 Neut % (Auto) 73.1 % (50.0-75.0) 01/25/18 17:49 Lymph % (Auto) 17.3 % (20.0-40.0) L 01/25/18 17:49 Grundy % (Auto) 7.7 % (0.0-10.0) 01/25/18 17:49 Eos % (Auto) 1.4 % (0.0-4.0) 01/25/18 17:49 Baso % (Auto) 0.5 % (0.0-2.0) 01/25/18 17:49 Neut # (Auto) 8.1 K/uL (1.8-7.0) H 01/25/18 17:49 Lymph # (Auto) 1.9 K/uL (1.0-4.3) 01/25/18 17:49 Grundy # (Auto) 0.8 K/uL (0.0-0.8) 01/25/18 17:49 Eos # (Auto) 0.2 K/uL (0.0-0.7) 01/25/18 17:49 Baso # (Auto) 0.1 K/uL (0.0-0.2) 01/25/18 17:49 Sodium 144 mmol/L (132-148) 01/25/18 17:49 Potassium 3.5 mmol/L (3.6-5.2) L 01/25/18 17:49 Chloride 106 mmol/L (98-107) 01/25/18 17:49 Carbon Dioxide 28 mmol/L (22-30) 01/25/18 17:49 Anion Gap 13 (10-20) 01/25/18 17:49 BUN 25 mg/dL (7-17) H 01/25/18 17:49 Creatinine 0.6 mg/dL (0.7-1.2) L 01/25/18 17:49 Est GFR ( Amer) > 60 01/25/18 17:49 Est GFR (Non-Af Amer) > 60 01/25/18 17:49 Random Glucose 116 mg/dL (65-105) H 01/25/18 17:49 Calcium 8.5 mg/dl (8.6-10.4) L 01/25/18 17:49 Total Bilirubin 0.7 mg/dL (0.2-1.3) 01/25/18 17:49 AST 31 U/L (14-36) 01/25/18 17:49 ALT 28 U/L (9-52) 01/25/18 17:49 Alkaline Phosphatase 89 U/L (38-126) 01/25/18 17:49 Total Protein 5.9 g/dL (6.3-8.3) L 01/25/18 17:49 Albumin 2.8 g/dL (3.5-5.0) L 01/25/18 17:49 Globulin 3.1 gm/dL (2.2-3.9) 01/25/18 17:49 Albumin/Globulin Ratio 0.9 (1.0-2.1) L 01/25/18 17:49 Urine Color Sandy (YELLOW) 01/25/18 17:49 Urine Clarity Hazy (Clear) 01/25/18 17:49 Urine pH 5.0 (5.0-8.0) 01/25/18 17:49 Ur Specific Hershey 1.020 (1.003-1.030) 01/25/18 17:49 Urine Protein Negative mg/dL (NEGATIVE) 01/25/18 17:49 Urine Glucose (UA) Normal mg/dL (Normal) 01/25/18 17:49 Urine Ketones Trace mg/dL (NEGATIVE) 01/25/18 17:49 Urine Blood 1+ (NEGATIVE) H 01/25/18 17:49 Urine Nitrate Negative (NEGATIVE) 01/25/18 17:49 Urine Bilirubin Negative (NEGATIVE) 01/25/18 17:49 Urine Urobilinogen 4.0 mg/dL (0.2-1.0) H 01/25/18 17:49 Ur Leukocyte Esterase Neg Amena/uL (Negative) 01/25/18 17:49 Urine WBC (Auto) 8 /hpf (0-5) H 01/25/18 17:49 Urine RBC (Auto) 1 /hpf (0-3) 01/25/18 17:49 Ur Squamous Epith Cells 2 /hpf (0-5) 01/25/18 17:49 Urine Bacteria Many (<OCC) H 01/25/18 17:49 - Hospital Course Hospital Course: On admission, Patient is a 82-year-old female with history of anemia in the past, and also recent history of left trochanteric fracture, status post ORIF, following that the patient become mostly bedbound, in the house. Postoperatively patient was in the hospital, and was sent to home and received physical exercise and therapy in the house. Initially she was doing well. But later she started having worsening overall condition. Family was taking care of her in the house. Patient has hospital bed. But for the course of 3 days family noticed that the blister formation in the sacral area, gradually getting worse, and got black eschar now. She was also having significant skin changes in the both heel, both feet, and also in the left ankle. Patient was seen by manager floor in the house. Patient now having increasing symptoms. Pain. Head legs and knees are contracted. Hospital course: Pt was admitted for FTT. Wound care/podiatry, Dr. Boggs, was consulted for stage II and III sacral decubiti, as well as ulcers to the left heel and left distal leg. Pt suspected to have UTI due to lab findings. Started on ceftriaxone. Wound care was managed by Dr. Boggs throughout stay. Pt tolerated wound care and antibiotic well during 7 day course of inpatient treatment. Pt's assisted goals and future management were discussed in detail with pt's daughter and son, who agree and understand. Pt will be discharged home with instruction on how to manage sacral and leg ulcers. Home physical therapy and visiting nurse arranged by social media sr strategy manager. Family instructed to follow up with PMD in 1 week. This is a summary of the hospital course, please see chart for full details. Discharge Exam - Head Exam Head Exam: ATRAUMATIC, NORMOCEPHALIC - Eye Exam Eye Exam: EOMI, Normal appearance - ENT Exam ENT Exam: Mucous Membranes Moist - Respiratory Exam Respiratory Exam: NORMAL BREATHING PATTERN - Cardiovascular Exam Cardiovascular Exam: REGULAR RHYTHM Additional comments: (+) 2+ distal pulses in bilateral upper and lower extremities - GI/Abdominal Exam GI & Abdominal Exam: Normal Bowel Sounds. absent: Tenderness - Extremities Exam Additional comments: (+) upper and lower extremities are contracted - Neurological Exam Neurological exam: Alert - Psychiatric Exam Psychiatric exam: Flat Affect - Skin Skin Exam: Normal Color, Warm Discharge Plan - Follow Up Plan Condition: FAIR Disposition: HOME/ ROUTINE Instructions: Urinary Tract Infection in Women (DC), Failure to Thrive in an Older Adult (DC) Referrals: Nikita Jj MD [Staff Provider] -
== END 2018-01-31 16:13 | disposition home or self-care (01) | DRG 690 ==
LOC: C.ER 16:38 → C.9E 17:06 → C.3T 18:30
PROVIDERS: ADMIT Internal Medicine; ATTEND Internal Medicine
DX: N39.0 Urinary tract infection, site not specified (principal); E46 Unspecified protein-calorie malnutrition; L97.929 Non-pressure chronic ulcer of unspecified part of left lower leg with unspecified severity; L97.429 Non-pressure chronic ulcer of left heel and midfoot with unspecified severity; R62.7 Adult failure to thrive; Z74.01 Bed confinement status; L89.159 Pressure ulcer of sacral region, unspecified stage; I10 Essential (primary) hypertension; F03.90 Unspecified dementia, unspecified severity, without behavioral disturbance, psychotic disturbance, mood disturbance, and anxiety

== ENCOUNTER 2018-05-30 10:24 | Inpatient (IN) | payer MEDICARE ==
[2018-05-30 10:25] VITALS: BMI 30.2
[2018-05-30] MEDS ORDERED: Sodium Chloride 0.9% 1,000 ML IV ONE (10:54)
--- NOTE | 2018-05-30 11:15 | C.PDOC ---
History Of Present Illness 82 y/o female presents to the ER for evaluation of bedsores to bilateral hips. Patient is bed ridden and has dementia. Family states that she has bedsores mainly in the bilateral hip and sacral regions. Family reports that she was ev alauted by her PMD, who found that there was drainage and foul smell from her left hip.He referred her to the ER for admission and debridement. Of note, HPI is limited because patient has history of dementia. Time Seen by Provider: 05/30/18 10:38 Chief Complaint (Nursing): Abnormal Skin Integrity History Per: Family History/Exam Limitations: clinical condition (dementia) Onset/Duration Of Symptoms: Days Current Symptoms Are (Timing): Still Present Quality Of Symptoms: Draining Severity: Moderate Additional History Per: Family Past Medical History Reviewed: Historical Data, Nursing Documentation, Vital Signs Vital Signs: Last Vital Signs Temp 99.7 F H 05/30/18 10:45 Pulse 108 H 05/30/18 10:29 Resp 18 05/30/18 10:29 BP 84/58 L 05/30/18 10:29 Pulse Ox 98 05/30/18 10:29 - Medical History PMH: Dementia, Fractures (Hip fx) Surgical History: Cholecystectomy Family History: States: No Known Family Hx - Social History Hx Tobacco Use: No Hx Alcohol Use: No Hx Substance Use: No - Immunization History Hx Tetanus Toxoid Vaccination: No Hx Influenza Vaccination: No Hx Pneumococcal Vaccination: No Review Of Systems Except As Marked, All Systems Reviewed And Found Negative. Constitutional: Positive for: Weakness. Negative for: Fever Skin: Positive for: Other (bedsores to hips) Neurological: Positive for: Weakness Physical Exam - Physical Exam Appears: Chronically Ill, Other (very thin, frail) Skin: Normal Color, Warm, Dry, Other (right hip with dressing, left hip 3x3 decubiti with drainage) Head: Atraumatic, Normacephalic Eye(s): bilateral: Normal Inspection Nose: Normal Oral Mucosa: Dry Chest: Symmetrical Respiratory: Normal Breath Sounds, No Rales, No Rhonchi, No Wheezing Gastrointestinal/Abdominal: Soft, No Tenderness, No Guarding, No Rebound Extremity: Other (decrease ROM to extremities) Neurological/Psych: Other (awake) Disoriented To: Person, Place, Time, Situation Gait: Unable To Assess ED Course And Treatment - Laboratory Results Result Diagrams: 05/30/18 11:19 05/30/18 11:19 Lab Interpretation: No Acute Changes ECG: Interpreted By Me ECG Rhythm: Sinus Rhythm ECG Interpretation: No Acute Changes Rate From EC O2 Sat by Pulse Oximetry: 98 (RA) Pulse Ox Interpretation: Normal Medical Decision Making Medical Decision Making: Plan: --Labs --UA --CXR Disposition - Disposition Disposition: HOSPITALIZED Disposition Time: 16:00 Condition: GOOD - Clinical Impression Clinical Impression: Skin irritation, Decubital ulcer, Sacral ulcer - PA / NEUROLOGY NURSE / Resident Statement MD/DO has reviewed & agrees with the documentation as recorded. - Scribe Statement The provider has reviewed the documentation as recorded by the Nadyaibe Prisca Tyson Provider Attestation All medical record entries made by the Scribe were at my direction and personally dictated by me. I have reviewed the chart and agree that the record accurately reflects my personal performance of the history, physical exam, medical decision making, and the department course for this patient. I have also personally directed, reviewed, and agree with the discharge instructions and disposition.
[2018-05-30 11:26] LABS: BASO # 0.1 K/uL (0.0-0.2); BASO % 0.5 % (0.0-2.0); EOS # 0.3 K/uL (0.0-0.7); EOS % 2.3 % (0.0-4.0); HEMOGLOBIN 10.7 g/dL (11.0-16.0); LYMPH # 1.7 K/uL (1.0-4.3); LYMPH % 13.6 % (20.0-40.0); MEAN CORPUSCULAR HEMOGLOBIN 29.2 pg (27.0-31.0); MEAN CORPUSCULAR HGB CONC 32.9 g/dL (33.0-37.0); MEAN PLATELET VOLUME 7.4 fL (7.2-11.7); MONO # 0.6 K/uL (0.0-0.8); MONO % 5.1 % (0.0-10.0); NEUT # 9.9 K/uL (1.8-7.0); NEUT % 78.5 % (50.0-75.0); RBC 3.65 Mil/uL (3.80-5.20); RED CELL DISTRIBUTION WIDTH 14.9 % (11.5-14.5); WHITE BLOOD COUNT 12.6 K/uL (4.8-10.8)
[2018-05-30 11:28] LABS: MEAN CELL VOLUME 88.9 fL (81.0-99.0)
[2018-05-30 11:39] LABS: ALB/GLOB RATIO 0.8 (1.0-2.1); ALBUMIN 2.4 g/dL (3.5-5.0); ALT/SGPT 31 U/L (9-52); AST/SGOT 49 U/L (14-36); BLOOD UREA NITROGEN 15 mg/dL (7-17); CALCIUM 7.5 mg/dl (8.6-10.4); GFR NON-AFRICAN AMERICAN > 60
[2018-05-30] MEDS ORDERED: Vancomycin 1 GM 1 GM/250 ML BAG IV STA (11:44)
[2018-05-30] MEDS ORDERED: Vancomycin 1 GM 1 GM/250 ML BAG IVPB ONE (12:14)
[2018-05-30 12:33] LABS: SQUAMOUS EPITHIAL 31 /hpf (0-5); URINE BILIRUBIN NEGATIVE (NEGATIVE); URINE BLOOD 1+ (NEGATIVE); URINE CLARITY Turbid (Clear); URINE COLOR Yellow (YELLOW); URINE GLUCOSE (UA) NORMAL (Normal); URINE LEUKOCYTE ESTERASE 2+ Leu/uL (Negative); URINE PROTEIN 3+ mg/dL (NEGATIVE); WBC CLUMPS MANY /hpf
[2018-05-30 12:45] LABS: URINE AMORPHOUS SEDIMENT FEW /ul (<OCC); URINE BACTERIA MANY (<OCC)
[2018-05-30] MEDS ORDERED: Piperacillin/Tazobact 3.375 gm 100 ML IV STA (12:56)
[2018-05-30] MEDS ORDERED: Piperacillin/Tazobact 3.375 gm 100 ML IVPB ONE (13:17)
--- NOTE | 2018-05-30 14:17 | RAD ---
HISTORY: SOB COMPARISON: Chest x-ray performed 06/07/15 TECHNIQUE: Chest, one view. FINDINGS: Examination limited by patient obliquity. The patient's chin obscures portions of the right lung apex. LUNGS: Biapical pleural thickening. Question focal opacity in the right lung apex, possibly related to tortuous vasculature exaggerated by patient obliquity. Please note that chest x-ray has limited sensitivity for the detection of pulmonary masses. PLEURA: No significant pleural effusion identified. No definite pneumothorax . CARDIOVASCULAR: Heart size appears within normal limits. Ectatic aorta. Atherosclerotic calcifications. OSSEOUS STRUCTURES: Osseous demineralization. Degenerative changes. Deformity of the right humeral head. VISUALIZED UPPER ABDOMEN: Unremarkable. OTHER FINDINGS: None. IMPRESSION: Biapical pleural thickening. Question focal opacity in the right lung apex, possibly related to tortuous vasculature exaggerated by patient obliquity. If clinically feasible, recommend repeat study with patient in improved alignment.
[2018-05-30] MEDS: Sodium Chloride 0.9% 1,000 ML IV SCH (21:58)
[2018-05-30] MEDS: Piperacill/Tazo 3.375gm in Dex 3.375 GM/50 ML BAG IVPB SCH (22:41)
[2018-05-31] MEDS: Piperacill/Tazo 3.375gm in Dex 3.375 GM/50 ML BAG IVPB SCH ×3 (06:15→22:15)
[2018-05-31] MEDS: Vancomycin 1 gm/NS 200 ml 1 GM/200 ML BAG IVPB SCH (06:53)
--- NOTE | 2018-05-31 07:51 | CP.PCM.CON ---
History of Present Illness - History of Present Illness History of Present Illness: Surgery Consult: Dr. Rapp Pt is an 82F with dementia who was brought to the hospital by her son, for b/l hip and sacral decubiti ulcers. History was obtained from the son at bedside since pt is unable to provide information due to her advanced dementia. As per the son, pt has had chronic decubiti ulcers that were being treated conservatively with medihoney and santyl. However recently, he noticed foul smelling discharge from b/l hip wounds. As per discussion with Dr. Jj, he was instructed to bring pt to the hospital for possible debridement and IV ABXs. States his mom has been at her baseline otherwise with no new issues or complaints. PMHx: dementia PSHx: cholecystectomy, hip sx SocialHx: no hx of smoking/EtOH NKDA Review of Systems - Review of Systems Systems not reviewed;Unavailable: Dementia Past Patient History - Past Medical History & Family History Past Medical History?: Yes - Past Social History Smoking Status: Never Smoked - NEUROLOGICAL Hx Dementia: Yes - INTEGUMENTARY Other/Comment: bed sores - MUSCULOSKELETAL/RHEUMATOLOGICAL Hx Fractures: Yes (Hip fx) - PSYCHIATRIC Hx Substance Use: No - SURGICAL HISTORY Hx Cholecystectomy: Yes - ANESTHESIA Hx Anesthesia: Yes Hx Anesthesia Reactions: No Hx Malignant Hyperthermia: No Has any member of the family had a problem w/ anesthesia?: No Meds Allergies/Adverse Reactions: Allergies Allergy/AdvReac Type Severity Reaction Status Date / Time No Known Allergies Allergy Verified 01/25/18 16:41 - Medications Medications: Current Medications Ascorbic Acid (Vitamin C 500 Mg Tab) 500 mg PO DAILY [facility] Heparin Sodium (Porcine) (Heparin) 5,000 units SC Q12 [facility] Last Admin: 05/30/18 22:02 Dose: 5,000 units Sodium Chloride (Sodium Chloride 0.9%) 1,000 mls @ 100 mls/hr IV .Q10H [facility] Last Admin: 05/30/18 21:58 Dose: 100 mls/hr Vancomycin/Sodium Chloride (Vancomycin 1 Gm/Ns 200 Ml) 1 gm in 200 mls @ 133 mls/hr IVPB Q24H [facility]; Protocol Stop: 06/05/18 07:01 Last Admin: 05/31/18 06:53 Dose: 133 mls/hr Piperacillin Sod/Tazobactam Sod (Zosyn 3.375 Gm Iv Premix) 3.375 gm in 50 mls @ 100 mls/hr IVPB Q8H [facility]; Protocol Last Admin: 05/31/18 06:15 Dose: 100 mls/hr Zinc Sulfate (Zinc Sulfate 220 Mg Cap) 220 mg PO DAILY [facility] Physical Exam - Constitutional Appears: No Acute Distress, Cachectic - Eye Exam Eye Exam: Normal appearance - Respiratory Exam Respiratory Exam: NORMAL BREATHING PATTERN - Cardiovascular Exam Cardiovascular Exam: RRR - GI/Abdominal Exam GI & Abdominal Exam: Soft. absent: Tenderness - Extremities Exam Additional comments: b/l hip with decubitus ulcers. R: 4x3cm with eschar, L: 5x4cm with eschar and fibrinous exudate, surrounding erythema sacral wound with clean base, no discharge - Skin Skin Exam: Dry, Warm Results - Vital Signs Recent Vital Signs: Last Vital Signs Temp 97.3 F L 05/31/18 00:49 Pulse 88 05/31/18 00:49 Resp 20 05/31/18 00:49 BP 111/68 05/31/18 00:49 Pulse Ox 96 05/31/18 00:49 - Labs Result Diagrams: 05/30/18 11:19 05/30/18 11:19 Labs: Laboratory Results - last 24 hr 05/30/18 05/30/18 05/30/18 11:19 11:19 12:02 WBC 12.6 H RBC 3.65 L Hgb 10.7 L Hct 32.5 L MCV 88.9 D MCH 29.2 MCHC 32.9 L RDW 14.9 H Plt Count 575 H D MPV 7.4 Neut % (Auto) 78.5 H Lymph % (Auto) 13.6 L [place] % (Auto) 5.1 Eos % (Auto) 2.3 Baso % (Auto) 0.5 Neut # (Auto) 9.9 H Lymph # (Auto) 1.7 [place] # (Auto) 0.6 Eos # (Auto) 0.3 Baso # (Auto) 0.1 Sodium 136 Potassium 3.7 Chloride 109 H Carbon Dioxide 24 Anion Gap 8 L BUN 15 Creatinine 0.7 Est GFR ( Amer) > 60 Est GFR (Non-Af Amer) > 60 Random Glucose 140 H D Calcium 7.5 L Total Bilirubin 0.5 AST 49 H D ALT 31 Alkaline Phosphatase 85 Total Protein 5.4 L Albumin 2.4 L Globulin 2.9 Albumin/Globulin Ratio 0.8 L Urine Color Yellow Urine Clarity Turbid Urine pH 5.0 Ur Specific [place] 1.017 Urine Protein 3+ H Urine Glucose (UA) Normal Urine Ketones Negative Urine Blood 1+ H Urine Nitrate Negative Urine Bilirubin Negative Urine Urobilinogen 4.0 H Ur Leukocyte Esterase 2+ H Urine WBC (Auto) 8071 H Urine RBC (Auto) 102 H Urine WBC Clumps (Auto) Many H Ur Squamous Epith Cells 31 H Amorphous Sediment Few H Urine Bacteria Many H Assessment & Plan - Assessment and Plan (Free Text) Assessment: 82F with b/l decubitus hip wounds Plan: - will attempt bedside debridement - cont santyl to b/l hips & medihoney to sacral wound - wound care nurse paloma - d/w Dr. Dionte Sigala
--- NOTE | 2018-05-31 11:21 | PQF ---
PROVIDER RESPONSE TEXT: WILL DO REVIEWER QUERY TEXT: Clarification of Clinical Diagnostic Findings Please clarify documentation or clinical relevance for the clinical / diagnostic findings or whether those are insignificant or unable to be further specified. -- Cellulitis -- Infected Sacral Decubitus Ulcers --- Sepsis --- Other --- Unable to determine The patient's Clinical Indicators include: 82 F, in a setting of bed ridden, (+) foul smelling drainage from Left hip Clinical Indicator: T=99.7, IX=379, wbc=12.6, xxi=232, gram stain =(+) gm +ve cocci, gm variable rods , foul smelling discharge from the Lf hip Risk Factor: Infected Decubitus ulcer Meds: piperacillin/tazobactam, vancomycin, for debridement Query created by: Alta Fournier on 05/30/2018 7:08 PM Electronically signed by: Nikita Jj MD 05/31/2018 11:18 AM
--- NOTE | 2018-05-31 11:29 | CARD ---
APPROVED REPORT Date of service: 05/30/2018 EKG Measurement Heart [id number] <Conclusion> Normal sinus rhythm Nonspecific ST and T wave abnormality Abnormal ECG
[2018-05-31] MEDS: Sodium Chloride 0.9% 1,000 ML IV SCH ×3 (11:47→23:43)
--- NOTE | 2018-05-31 14:05 | CP.PCM.CON ---
History of Present Illness - History of Present Illness History of Present Illness: INFECTIOUS DISEASE CONSULT; HPI; 82-year-old female with history of dementia, LEFT HIP,TROCHANTERIC FRACTURE S/P ORIF WHO is brought in from home because of bilateral hip and sacral decubitus ulcers unstageable.. Patient has advanced dementia and history obtained mainly from the daughter at the bedside. Patient has had chronic decubitus ulcers that were being treated conservatively by wound care nurse at home and treated conservatively with MEDIHONEY/AND SANTYL. However recently foul-smelling discharge was noticed by family members and patient was instructed by PMD to come to the hospital for possible debridement and IV antibiotics. Patient also was found to have leukocytosis and hazy urine on admission with clumps of WBCs and many bacteria in UA. Patient presently is incontinent and was wearing diapers at home. INFECTIOUS DISEASE CONSULTATION REQUESTED BY DR Herve MCBRIDE FOR SEPSIS AND INFECTED DECUBITUS ULCERS. PATIENT STARTED EMPIRICALLY ON zOSYN 3.375 EVERY 8 HOURLY AND VANCOMYCIN 1 G EVERY 24 HOURLY SINCE 05/30/18. PMH: Dementia, Fractures ( LEFT Hip fx)S/P ORIF. Surgical History: Cholecystectomy Family History: States: No Known Family Hx - Social History Hx Tobacco Use: No Hx Alcohol Use: No Hx Substance Use: No - Immunization History Hx Tetanus Toxoid Vaccination: No Hx Influenza Vaccination: No Hx Pneumococcal Vaccination: No ALLERGY; NKA. Review of Systems - Review of Systems Systems not reviewed;Unavailable: Dementia All systems: reviewed and no additional remarkable complaints except (WEAKNESS/AND BEDSORES.) Past Patient History - Past Medical History & Family History Past Medical History?: Yes - Past Social History Smoking Status: Never Smoked - NEUROLOGICAL Hx Dementia: Yes - INTEGUMENTARY Other/Comment: bed sores - MUSCULOSKELETAL/RHEUMATOLOGICAL Hx Fractures: Yes (Hip fx) - PSYCHIATRIC Hx Substance Use: No - SURGICAL HISTORY Hx Cholecystectomy: Yes - ANESTHESIA Hx Anesthesia: Yes Hx Anesthesia Reactions: No Hx Malignant Hyperthermia: No Has any member of the family had a problem w/ anesthesia?: No Meds Allergies/Adverse Reactions: Allergies Allergy/AdvReac Type Severity Reaction Status Date / Time No Known Allergies Allergy Verified 01/25/18 16:41 - Medications Medications: Current Medications Ascorbic Acid (Vitamin C 500 Mg Tab) 500 mg PO DAILY [facility] Last Admin: 05/31/18 11:21 Dose: 500 mg Heparin Sodium (Porcine) (Heparin) 5,000 units SC Q12 [facility] Last Admin: 05/31/18 11:17 Dose: 5,000 units Sodium Chloride (Sodium Chloride 0.9%) 1,000 mls @ 100 mls/hr IV .Q10H [facility] Last Admin: 05/31/18 11:47 Dose: Not Given Vancomycin/Sodium Chloride (Vancomycin 1 Gm/Ns 200 Ml) 1 gm in 200 mls @ 133 mls/hr IVPB Q24H [facility]; Protocol Stop: 06/05/18 07:01 Last Admin: 05/31/18 06:53 Dose: 133 mls/hr Piperacillin Sod/Tazobactam Sod (Zosyn 3.375 Gm Iv Premix) 3.375 gm in 50 mls @ 100 mls/hr IVPB Q8H [facility]; Protocol Last Admin: 05/31/18 06:15 Dose: 100 mls/hr Influenza Virus Vaccine (Flucelvax Quad [id number] Syr) 60 mcg IM .ONCE ONE Stop: 06/02/18 10:01 Pneumococcal Polyvalent Vaccine (Pneumovax 23 Vaccine) 0.5 ml IM .ONCE ONE Stop: 06/02/18 10:01 Zinc Sulfate (Zinc Sulfate 220 Mg Cap) 220 mg PO DAILY [facility] Last Admin: 05/31/18 11:19 Dose: 220 mg Physical Exam - Constitutional Appears: No Acute Distress, Cachectic, Chronically Ill - Head Exam Head Exam: NORMAL INSPECTION - Eye Exam Eye Exam: EOMI, PERRL - ENT Exam ENT Exam: Mucous Membranes Dry - Neck Exam Neck exam: Positive for: Normal Inspection - Respiratory Exam Respiratory Exam: Decreased Breath Sounds, NORMAL BREATHING PATTERN - Cardiovascular Exam Cardiovascular Exam: REGULAR RHYTHM, +S1, +S2 - GI/Abdominal Exam GI & Abdominal Exam: Normal Bowel Sounds, Soft. absent: Tenderness - Extremities Exam Extremities exam: Positive for: pedal pulses present. Negative for: calf tenderness - Neurological Exam Neurological exam: Altered, CN II-XII Intact - Psychiatric Exam Psychiatric exam: Flat Affect - Skin Skin Exam: Dry, Pallor Additional comments: B/L Hip with decubitus ulcers. R: 4x3cm with eschar, L: 5x4cm with eschar and fibrinous exudate, surrounding erythema Sacral wound with clean base, no discharge Results - Vital Signs Recent Vital Signs: Last Vital Signs Temp 98.3 F 05/31/18 07:55 Pulse 86 05/31/18 07:55 Resp 20 05/31/18 07:55 BP 98/67 L 05/31/18 07:55 Pulse Ox 96 05/31/18 07:55 - Labs Result Diagrams: 05/30/18 11:19 05/30/18 11:19 Assessment & Plan (1) Decubital ulcer Status: Acute (2) Sacral ulcer Status: Acute (3) Failure to thrive Status: Acute (4) UTI (urinary tract infection) Status: Acute - Assessment and Plan (Free Text) Plan: PLAN; PANCULTURE ESR CRP. PATIENT SEEN BY SURGERY S/P DEBRIDEMENT ON BEDSIDE TODAY.05/31/18 PER DAUGHTER AT BEDSIDE CONTINUE iv ZOSYN 3.375 EVERY 8 HOURLY 05/30/18 CONTINUE iv VANCOMYCIN 1 G EVERY 24 HOURLY.05/30/18. F/U vANCO TROUGH PRIOR TO THE THIRD DOSE AND KEEP BETWEEN 10 AND 20 MG/ML. fOLLOW-UP CULTURES TO ADJUST ANTIBIOTICS. mONITOR RENAL FUNCTIONS CLOSELY. WE WILL FOLLOW ALONG WITH YOU AND MAKE FURTHER RECOMMENDATIONS NEEDED. tHANK YOU
--- NOTE | 2018-05-31 19:55 | CP.PCM.PN ---
Subjective - Date & Time of Evaluation Date of Evaluation: 05/31/18 Time of Evaluation: 13:00 - Subjective Subjective: Surgery Procedure Note for Dr. Rapp Procedure: Bedside excision debridement of chronic left and right lateral thigh pressure ulcers stage 4 Preop Diagnosis: Chronic stage 4 ulcer Postop Diagnosis: Same Consent obtained by son who is Power of Child Care Specialist with nurse at bedside as witness. Patient prepped with betadine and draped in sterile manner. Using 15 blade and forceps, eschar and devitalized tissue of the left and right lateral thigh ulcers debrided until healthy tissue exposed. Wound irrigated with normal saline. Hemostasis achieved. Metahoney applied over wounds bilaterally. Wound dressed with gauze and optifoam. Patient tolerated the procedure well with no complications noted. Objective - Vital Signs/Intake and Output Vital Signs (last 24 hours): Temp Pulse Resp BP Pulse Ox 98.0 F 84 20 98/53 L 98 05/31/18 15:00 05/31/18 15:00 05/31/18 15:00 05/31/18 15:00 05/31/18 15:00 Intake and Output: 05/31/18 06/01/18 18:59 06:59 Intake Total 300 Balance 300 - Medications Medications: Current Medications Ascorbic Acid (Vitamin C 500 Mg Tab) 500 mg PO DAILY [facility] Last Admin: 05/31/18 11:21 Dose: 500 mg Heparin Sodium (Porcine) (Heparin) 5,000 units SC Q12 [facility] Last Admin: 05/31/18 11:17 Dose: 5,000 units Sodium Chloride (Sodium Chloride 0.9%) 1,000 mls @ 100 mls/hr IV .Q10H [facility] Last Admin: 05/31/18 11:47 Dose: Not Given Vancomycin/Sodium Chloride (Vancomycin 1 Gm/Ns 200 Ml) 1 gm in 200 mls @ 133 mls/hr IVPB Q24H [facility]; Protocol Stop: 06/05/18 07:01 Last Admin: 05/31/18 06:53 Dose: 133 mls/hr Piperacillin Sod/Tazobactam Sod (Zosyn 3.375 Gm Iv Premix) 3.375 gm in 50 mls @ 100 mls/hr IVPB Q8H [facility]; Protocol Last Admin: 05/31/18 15:10 Dose: 100 mls/hr Influenza Virus Vaccine (Flucelvax Quad [id number] Syr) 60 mcg IM .ONCE ONE Stop: 06/02/18 10:01 Pneumococcal Polyvalent Vaccine (Pneumovax 23 Vaccine) 0.5 ml IM .ONCE ONE Stop: 06/02/18 10:01 Zinc Sulfate (Zinc Sulfate 220 Mg Cap) 220 mg PO DAILY [facility] Last Admin: 05/31/18 11:19 Dose: 220 mg - Labs Labs: 05/30/18 11:19 05/30/18 11:19
--- NOTE | 2018-05-31 23:11 | CP.PCM.HP ---
History of Present Illness - History of Present Illness History of Present Illness: Chief complaint: Worsening sacral decubiti HPI: Patient is a 82-year-old female with history of anemia in the past, and also recent history of left trochanteric fracture, status post ORIF, following that the patient become mostly bedbound, in the house. Postoperatively patient was in the hospital, and was sent to home and received p hysical exercise and therapy in the house. Initially she was doing well. But later she started having worsening overall condition. Family was taking care of her in the house. Patient was recently hospitalized, at that time patient was having multiple but sacral decubiti, bilateral iliac crest decubiti, as well as heel ulcers noted. Patient at home being taken care of by wound nurse. Getting treatment on a daily basis. In spite of that patient still having worsening bilateral iliac crest trochant jovany area ulcers. Foul-smelling discharge noted. Patient also been becoming more lethargic and weak. But the leg ulcer is improving markedly. Past medical history: Dementia, hypertension, anemia. Allergy no known drug allergy Personal history non-smoker nonalcoholic Patient is currently living in the house with the family. Review of system: Patient is somewhat confused. Dementia noted. Patient also has a severe contracted knees on bilateral. skin wounds noted. On examination: Patient is somewhat confused. Disoriented. Answering simple questions. Weight loss noted. Patient is somewhat dehydrated. Mucous membrane dryness noted. Chest good air entry Regular heart sounds Nontender abdomen. Patient has at least quarter size sacral decubiti involving in the sacral area, with the surrounding erythema. Also there is a bilateral trochanteric area significant sacral decubiti, associated with the foul-smelling discharge as well as skin eschar is noted, slough noted Patient labs reviewed Urine analysis showing evidence of possible UTI Elevated WBC noted Assessment: 82-year-old female with a history of anemia. History of dementia. Recent hip fracture. Now complicated with contractures of the bilateral knee and hips. Also bedridden. Now with worsening sacral decubiti. Malnourishment. Poor nutrition. Urinary tract infection likely acute associate with the some altered mental status mild. I suggested that patient needs to get antibiotic. Patient will need evaluation by the surgeon management. DVT prophylaxis. Feeding with assistance. Aspiration precautions. Infectious disease evaluation needed. Patient also has a possible sepsis associated with the sacral decubiti. Infected decubiti noted. Pressure ulcers. Surgical evaluation for possible debridement, as well as wound VAC. Wound management. We will follow the patient Present on Admission - Present on Admission Any Indicators Present on Admission: No History of DVT/PE: No History of Uncontrolled Diabetes: No Urinary Catheter: No Decubitus Ulcer Present: No Past Patient History - Past Medical History & Family History Past Medical History?: Yes - Past Social History Smoking Status: Never Smoked - NEUROLOGICAL Hx Dementia: Yes - INTEGUMENTARY Other/Comment: bed sores - MUSCULOSKELETAL/RHEUMATOLOGICAL Hx Fractures: Yes (Hip fx) - PSYCHIATRIC Hx Substance Use: No - SURGICAL HISTORY Hx Cholecystectomy: Yes - ANESTHESIA Hx Anesthesia: Yes Hx Anesthesia Reactions: No Hx Malignant Hyperthermia: No Has any member of the family had a problem w/ anesthesia?: No Meds Allergies/Adverse Reactions: Allergies Allergy/AdvReac Type Severity Reaction Status Date / Time No Known Allergies Allergy Verified 01/25/18 16:41 Results - Vital Signs Recent Vital Signs: Last Vital Signs Temp 98.0 F 05/31/18 15:00 Pulse 84 05/31/18 15:00 Resp 20 05/31/18 15:00 BP 98/53 L 05/31/18 15:00 Pulse Ox 98 05/31/18 15:00 - Labs Result Diagrams: 05/30/18 11:19 05/30/18 11:19
--- NOTE | 2018-05-31 23:13 | CP.PCM.PN ---
Subjective - Date & Time of Evaluation Date of Evaluation: 05/31/18 Time of Evaluation: 23:12 - Subjective Subjective: Bedside wound debridement was done. The deep tissues were removed bilaterally and the crest trochanteric area. Today patient seems to be slightly better, able to eat better. On antibiotic. Seen by infectious disease. Vital signs stable. We will repeat the labs tomorrow. We will discuss with the surgery for possible wound VAC. Overall patient prognosis is poor Patient has a significant contractures involving the lower extremities. Bilateral decubiti in the trochanteric area, stage IV. Also there is a unstageable sacral decubiti. Malnourishment. Poor prognosis. Objective - Vital Signs/Intake and Output Vital Signs (last 24 hours): Temp Pulse Resp BP Pulse Ox 98.0 F 84 20 98/53 L 98 05/31/18 15:00 05/31/18 15:00 05/31/18 15:00 05/31/18 15:00 05/31/18 15:00 Intake and Output: 05/31/18 06/01/18 18:59 06:59 Intake Total 300 1040 Balance 300 1040 - Medications Medications: Current Medications Ascorbic Acid (Vitamin C 500 Mg Tab) 500 mg PO DAILY [facility] Last Admin: 05/31/18 11:21 Dose: 500 mg Heparin Sodium (Porcine) (Heparin) 5,000 units SC Q12 [facility] Last Admin: 05/31/18 22:14 Dose: 5,000 units Vancomycin/Sodium Chloride (Vancomycin 1 Gm/Ns 200 Ml) 1 gm in 200 mls @ 133 mls/hr IVPB Q24H [facility]; Protocol Stop: 06/05/18 07:01 Last Admin: 05/31/18 06:53 Dose: 133 mls/hr Piperacillin Sod/Tazobactam Sod (Zosyn 3.375 Gm Iv Premix) 3.375 gm in 50 mls @ 100 mls/hr IVPB Q8H [facility]; Protocol Last Admin: 05/31/18 22:15 Dose: 100 mls/hr Influenza Virus Vaccine (Flucelvax Quad [id number] Syr) 60 mcg IM .ONCE ONE Stop: 06/02/18 10:01 Pneumococcal Polyvalent Vaccine (Pneumovax 23 Vaccine) 0.5 ml IM .ONCE ONE Stop: 06/02/18 10:01 Zinc Sulfate (Zinc Sulfate 220 Mg Cap) 220 mg PO DAILY [facility] Last Admin: 05/31/18 11:19 Dose: 220 mg - Labs Labs: 05/30/18 11:19 05/30/18 11:19
[2018-06-01] MEDS: Piperacill/Tazo 3.375gm in Dex 3.375 GM/50 ML BAG IVPB SCH ×2 (06:01→22:10)
[2018-06-01] MEDS: Vancomycin 1 gm/NS 200 ml 1 GM/200 ML BAG IVPB SCH (06:45)
[2018-06-01 08:48] LABS: BASO % 0.5 % (0.0-2.0); EOS # 0.6 K/uL (0.0-0.7); EOS % 6.4 % (0.0-4.0); LYMPH % 21.4 % (20.0-40.0); MEAN CELL VOLUME 89.1 fL (81.0-99.0); MEAN CORPUSCULAR HEMOGLOBIN 29.6 pg (27.0-31.0); MEAN CORPUSCULAR HGB CONC 33.2 g/dL (33.0-37.0); MEAN PLATELET VOLUME 7.4 fL (7.2-11.7); MONO # 0.8 K/uL (0.0-0.8); MONO % 8.4 % (0.0-10.0); NEUT # 5.9 K/uL (1.8-7.0); NEUT % 63.3 % (50.0-75.0); RBC 3.04 Mil/uL (3.80-5.20); RED CELL DISTRIBUTION WIDTH 14.9 % (11.5-14.5); WHITE BLOOD COUNT 9.3 K/uL (4.8-10.8)
[2018-06-01 08:58] LABS: INR 1.2; PROTHROMBIN TIME 12.6 SECONDS (9.7-12.2)
[2018-06-01 09:08] LABS: ALB/GLOB RATIO 0.7 (1.0-2.1); ALBUMIN 1.8 g/dL (3.5-5.0); ALT/SGPT 29 U/L (9-52); AST/SGOT 30 U/L (14-36); BLOOD UREA NITROGEN 11 mg/dL (7-17); CALCIUM 6.8 mg/dl (8.6-10.4); GFR NON-AFRICAN AMERICAN > 60
--- NOTE | 2018-06-01 10:02 | CP.PCM.PN ---
Subjective - Date & Time of Evaluation Date of Evaluation: 06/01/18 Time of Evaluation: 07:45 - Subjective Subjective: Surgery progress note for Dr. Rapp. Patient seen and examined at bedside. Patient is POD #1 for bedside debridement of stage 4 ulcers on left and right thigh No acute events reported overnight. Unable to obtain further information due to patients advanced dementia. Objective - Vital Signs/Intake and Output Vital Signs (last 24 hours): Temp Pulse Resp BP Pulse Ox 98.7 F 89 20 118/55 L 98 06/01/18 07:36 06/01/18 07:36 06/01/18 07:36 06/01/18 07:36 06/01/18 07:36 Intake and Output: 06/01/18 06/01/18 06:59 18:59 Intake Total 1490 Balance 1490 - Medications Medications: Current Medications Ascorbic Acid (Vitamin C 500 Mg Tab) 500 mg PO DAILY [facility] Last Admin: 05/31/18 11:21 Dose: 500 mg Heparin Sodium (Porcine) (Heparin) 5,000 units SC Q12 [facility] Last Admin: 05/31/18 22:14 Dose: 5,000 units Vancomycin/Sodium Chloride (Vancomycin 1 Gm/Ns 200 Ml) 1 gm in 200 mls @ 133 mls/hr IVPB Q24H [facility]; Protocol Stop: 06/05/18 07:01 Last Admin: 06/01/18 06:45 Dose: 133 mls/hr Piperacillin Sod/Tazobactam Sod (Zosyn 3.375 Gm Iv Premix) 3.375 gm in 50 mls @ 100 mls/hr IVPB Q8H [facility]; Protocol Last Admin: 06/01/18 06:01 Dose: 100 mls/hr Sodium Chloride (Sodium Chloride 0.9%) 1,000 mls @ 45 mls/hr IV .[id number] [facility] Last Admin: 05/31/18 23:43 Dose: 45 mls/hr Influenza Virus Vaccine (Flucelvax Quad [id number] Syr) 60 mcg IM .ONCE ONE Stop: 06/02/18 10:01 Pneumococcal Polyvalent Vaccine (Pneumovax 23 Vaccine) 0.5 ml IM .ONCE ONE Stop: 06/02/18 10:01 Zinc Sulfate (Zinc Sulfate 220 Mg Cap) 220 mg PO DAILY [facility] Last Admin: 05/31/18 11:19 Dose: 220 mg - Labs Labs: 06/01/18 08:39 06/01/18 08:39 PT 12.6 SECONDS (9.7-12.2) H 06/01/18 08:39 INR 1.2 06/01/18 08:39 APTT 37 SECONDS (21-34) H 06/01/18 08:39 - Constitutional Appears: Non-toxic, No Acute Distress - Head Exam Head Exam: NORMAL INSPECTION - Eye Exam Eye Exam: Normal appearance - ENT Exam ENT Exam: Mucous Membranes Moist - Respiratory Exam Respiratory Exam: NORMAL BREATHING PATTERN - Cardiovascular Exam Additional comments: RR - GI/Abdominal Exam GI & Abdominal Exam: Soft, Normal Bowel Sounds - Extremities Exam Additional comments: b/l hip with decubitus ulcers. R: 4x3cm, L: 5x4cm, surrounding erythema sacral wound with clean base, no discharge - Neurological Exam Neurological Exam: Awake - Skin Additional comments: Clean, dry, intact dressing over left and right hip Assessment and Plan - Assessment and Plan (Free Text) Assessment: 82F with b/l decubitus hip wounds Plan: - cont medihoney & dressing changes per wound care - no further debridgement planned at this time Further recs per Dr. Dionte Gomez, PGY1
--- NOTE | 2018-06-01 11:49 | CP.PCM.PN ---
Subjective - Date & Time of Evaluation Date of Evaluation: 06/01/18 Time of Evaluation: 11:48 - Subjective Subjective: AFEBRILE,VSS COMFORTABLE. AWAKE. S/P I& D B/L DECUBITUS ULCERS AT BEDSIDE RN AT BEDSIDE. INCONTINENT OF URINE, DISCUSSED WITH RN. LABS REVIEWED. URINE CULTURE +VE PSEUDOMONAS AERUGINOSA WOUND CULTURE MULTIPLE GN/GPC Objective - Vital Signs/Intake and Output Vital Signs (last 24 hours): Temp Pulse Resp BP Pulse Ox 98.7 F 89 20 118/55 L 98 06/01/18 07:36 06/01/18 07:36 06/01/18 07:36 06/01/18 07:36 06/01/18 07:36 Intake and Output: 06/01/18 06/01/18 06:59 18:59 Intake Total 1490 Balance 1490 - Medications Medications: Current Medications Ascorbic Acid (Vitamin C 500 Mg Tab) 500 mg PO DAILY [facility] Last Admin: 06/01/18 10:50 Dose: 500 mg Heparin Sodium (Porcine) (Heparin) 5,000 units SC Q12 [facility] Last Admin: 06/01/18 10:51 Dose: 5,000 units Vancomycin/Sodium Chloride (Vancomycin 1 Gm/Ns 200 Ml) 1 gm in 200 mls @ 133 m ls/hr IVPB Q24H [facility]; Protocol Stop: 06/05/18 07:01 Last Admin: 06/01/18 06:45 Dose: 133 mls/hr Piperacillin Sod/Tazobactam Sod (Zosyn 3.375 Gm Iv Premix) 3.375 gm in 50 mls @ 100 mls/hr IVPB Q8H [facility]; Protocol Last Admin: 06/01/18 06:01 Dose: 100 mls/hr Sodium Chloride (Sodium Chloride 0.9%) 1,000 mls @ 45 mls/hr IV .[id number] [facility] Last Admin: 05/31/18 23:43 Dose: 45 mls/hr Influenza Virus Vaccine (Flucelvax Quad [id number] Syr) 60 mcg IM .ONCE ONE Stop: 06/02/18 10:01 Pneumococcal Polyvalent Vaccine (Pneumovax 23 Vaccine) 0.5 ml IM .ONCE ONE Stop: 06/02/18 10:01 Zinc Sulfate (Zinc Sulfate 220 Mg Cap) 220 mg PO DAILY [facility] Last Admin: 01/25/19 10:50 Dose: 220 mg - Labs Labs: 06/01/18 08:39 06/01/18 08:39 PT 12.6 SECONDS (9.7-12.2) H 06/01/18 08:39 INR 1.2 06/01/18 08:39 APTT 37 SECONDS (21-34) H 06/01/18 08:39 - Constitutional Appears: No Acute Distress, Confused, Cachectic - Head Exam Head Exam: NORMAL INSPECTION - Eye Exam Eye Exam: EOMI, Normal appearance, PERRL - ENT Exam ENT Exam: Mucous Membranes Moist, Normal Oropharynx - Neck Exam Neck Exam: Normal Inspection - Respiratory Exam Respiratory Exam: Decreased Breath Sounds - Cardiovascular Exam Cardiovascular Exam: REGULAR RHYTHM, +S1, +S2 - GI/Abdominal Exam GI & Abdominal Exam: Soft, Normal Bowel Sounds - Extremities Exam Extremities Exam: Pedal Edema. absent: Calf Tenderness - Neurological Exam Neurological Exam: Awake - Psychiatric Exam Psychiatric exam: Normal Affect - Skin Skin Exam: Dry (B/L BUTTOCKS DEC ULCERS WITH DRESSINGS), Normal Color, Warm Assessment and Plan (1) Decubital ulcer Assessment & Plan: S/P DEBRIDEMENT B/L TROCHANTERIC INFECTED ULCERS +VE DRESSING IN PLACE 05/31/18 ON IV ABX Status: Acute (2) Sacral ulcer Assessment & Plan: CLEAN BASE Status: Acute (3) Failure to thrive Status: Acute (4) UTI (urinary tract infection) Status: Acute - Assessment and Plan (Free Text) Plan: CONTINUE iv ZOSYN 3.375 EVERY 8 HOURLY 05/30/18 CONTINUE iv VANCOMYCIN 1 G EVERY 24 HOURLY.05/30/18. F/U vANCO TROUGH PRIOR TO THE THIRD DOSE AND KEEP BETWEEN 10 AND 20 MG/ML. mONITOR RENAL FUNCTIONS CLOSELY. LWC PER SURGERY.
[2018-06-01] MEDS: Potassium & Sodium Phosphate PO SCH (17:42)
[2018-06-01] MEDS: Sodium Chloride 0.9% 1,000 ML IV SCH (22:10)
[2018-06-02] MEDS: Piperacill/Tazo 3.375gm in Dex 3.375 GM/50 ML BAG IVPB SCH ×3 (06:04→22:25)
[2018-06-02] MEDS: Vancomycin 1 gm/NS 200 ml 1 GM/200 ML BAG IVPB SCH (06:04)
[2018-06-02 08:37] LABS: BLOOD UREA NITROGEN 8 mg/dL (7-17); CALCIUM 7.1 mg/dl (8.6-10.4); GFR NON-AFRICAN AMERICAN > 60
[2018-06-02] MEDS ORDERED: Pneumococcal 23-Valent Vaccine IM ONE (10:00)
[2018-06-02] MEDS ORDERED: Influenza Vaccine 60 mcg/0.5 mL SYR (4YR UP) IM ONE (10:00)
[2018-06-02] MEDS: Potassium & Sodium Phosphate PO SCH ×2 (10:07→17:48)
--- NOTE | 2018-06-02 19:29 | CP.PCM.PN ---
Subjective - Date & Time of Evaluation Date of Evaluation: 06/02/18 Time of Evaluation: 19:29 - Subjective Subjective: afebrile comfortable. ON IV ABX. LWC Objective - Vital Signs/Intake and Output Vital Signs (last 24 hours): Temp Pulse Resp BP Pulse Ox 97.3 F L 74 20 124/67 97 06/02/18 16:00 06/02/18 16:00 06/02/18 16:00 06/02/18 16:00 06/02/18 16:00 Intake and Output: 06/02/18 06/03/18 18:59 06:59 Intake Total 360 Balance 360 - Medications Medications: Current Medications Ascorbic Acid (Vitamin C 500 Mg Tab) 500 mg PO DAILY [facility] Last Admin: 06/02/18 10:06 Dose: 500 mg Heparin Sodium (Porcine) (Heparin) 5,000 units SC Q12 [facility] Last Admin: 06/02/18 10:07 Dose: 5,000 units Vancomycin/Sodium Chloride (Vancomycin 1 Gm/Ns 200 Ml) 1 gm in 200 mls @ 133 mls/hr IVPB Q24H [facility]; Protocol Stop: 06/05/18 07:01 Last Admin: 06/02/18 06:04 Dose: 133 mls/hr Piperacillin Sod/Tazobactam Sod (Zosyn 3.375 Gm Iv Premix) 3.375 gm in 50 mls @ 100 mls/hr IVPB Q8H [facility]; Protocol Last Admin: 06/02/18 14:31 Dose: 100 mls/hr Sodium Chloride (Sodium Chloride 0.9%) 1,000 mls @ 45 mls/hr IV .[id number] [facility] Last Admin: 06/01/18 22:10 Dose: 45 mls/hr Potassium Phos/Sodium Phos (Neutra-Phos) 1 pkt PO BID [facility] Last Admin: 06/02/18 17:48 Dose: 1 pkt Zinc Sulfate (Zinc Sulfate 220 Mg Cap) 220 mg PO DAILY [facility] Last Admin: 06/02/18 10:06 Dose: 220 mg - Labs Labs: 06/01/18 08:39 06/02/18 07:00 PT 12.6 SECONDS (9.7-12.2) H 06/01/18 08:39 INR 1.2 06/01/18 08:39 APTT 37 SECONDS (21-34) H 06/01/18 08:39 - Constitutional Appears: No Acute Distress, Cachectic, Chronically Ill - Head Exam Head Exam: NORMAL INSPECTION - Eye Exam Eye Exam: EOMI, PERRL - ENT Exam ENT Exam: Normal Oropharynx - Neck Exam Neck Exam: Normal Inspection - Respiratory Exam Respiratory Exam: Decreased Breath Sounds - Cardiovascular Exam Cardiovascular Exam: REGULAR RHYTHM, +S1, +S2 - GI/Abdominal Exam GI & Abdominal Exam: Soft, Normal Bowel Sounds - Extremities Exam Extremities Exam: Normal Capillary Refill, Pedal Edema. absent: Calf Tenderness - Neurological Exam Neurological Exam: Awake, CN II-XII Intact - Psychiatric Exam Psychiatric exam: Flat Affect - Skin Skin Exam: Warm. absent: Rash (+VE DEC ULCERSBUTTOCKS AND SACRAL +VE DRESSING.) Assessment and Plan (1) Decubital ulcer Status: Acute (2) Sacral ulcer Status: Acute (3) Failure to thrive Status: Acute (4) UTI (urinary tract infection) Status: Acute - Assessment and Plan (Free Text) Plan: CONTINUE iv ZOSYN 3.375 EVERY 8 HOURLY 05/30/18 CONTINUE iv VANCOMYCIN 1 G EVERY 24 HOURLY.05/30/18. F/U vANCO TROUGH PRIOR TO THE THIRD DOSE AND KEEP BETWEEN 10 AND 20 MG/ML. CONSIDER PUREWICK CATHETHER PT INCONTINENT mONITOR RENAL FUNCTIONS CLOSELY. LWC PER SURGERY.
[2018-06-02] MEDS: Sodium Chloride 0.9% 1,000 ML IV SCH (19:30)
[2018-06-03] MEDS: Piperacill/Tazo 3.375gm in Dex 3.375 GM/50 ML BAG IVPB SCH ×3 (06:00→21:24)
[2018-06-03] MEDS: Vancomycin 1 gm/NS 200 ml 1 GM/200 ML BAG IVPB SCH (06:03)
[2018-06-03] MEDS: Potassium & Sodium Phosphate PO SCH ×2 (09:50→17:43)
[2018-06-03] MEDS ORDERED: Vancomycin 1 gm/NS 200 ml 1 GM/200 ML BAG IVPB SCH ×2 (14:00→20:00)
[2018-06-04] MEDS: Piperacill/Tazo 3.375gm in Dex 3.375 GM/50 ML BAG IVPB SCH ×3 (05:08→22:11)
[2018-06-04] MEDS: Vancomycin 1 gm/NS 200 ml 1 GM/200 ML BAG IVPB SCH (07:54)
[2018-06-04] MEDS: Potassium & Sodium Phosphate PO SCH ×2 (09:51→18:00)
--- NOTE | 2018-06-04 11:23 | CP.PCM.PN ---
Subjective - Date & Time of Evaluation Date of Evaluation: 06/04/18 Time of Evaluation: 11:23 - Subjective Subjective: afebrile no acute events overnight. ON IV ABX. patient has sacral and trochanteric decubitus ulcers s/p debridement. Case discussed with behavioral health case manager/staff. Patient will need IV antibiotics x 2 weeks f/u by oral antibiotics -Cipro 500 twice a day for 2 weeks LWC as per surgery LABS; VANCO TROUGH 19.6 ON vANCO 1 G ONCE A DAY DAILY.--OK. Objective - Vital Signs/Intake and Output Vital Signs (last 24 hours): Temp Pulse Resp BP Pulse Ox 98.7 F 86 20 118/58 L 96 06/04/18 08:12 06/04/18 08:12 06/04/18 08:12 06/04/18 08:12 06/04/18 08:12 Intake and Output: 06/04/18 06/04/18 06:59 18:59 Intake Total 420 500 Output Total 1 Balance 420 499 - Medications Medications: Current Medications Ascorbic Acid (Vitamin C 500 Mg Tab) 500 mg PO DAILY [facility] Last Admin: 06/04/18 09:51 Dose: 500 mg Piperacillin Sod/Tazobactam Sod (Zosyn 3.375 Gm Iv Premix) 3.375 gm in 50 mls @ 100 mls/hr IVPB Q8 [facility]; Protocol Last Admin: 06/04/18 05:08 Dose: 100 mls/hr Vancomycin/Sodium Chloride (Vancomycin 1 Gm/Ns 200 Ml) 1 gm in 200 mls @ 133 mls/hr IVPB Q24H [facility]; Protocol Stop: 06/09/18 07:01 Last Admin: 06/04/18 07:54 Dose: 133 mls/hr Potassium Phos/Sodium Phos (Neutra-Phos) 1 pkt PO BID [facility] Last Admin: 06/04/18 09:51 Dose: 1 pkt Zinc Sulfate (Zinc Sulfate 220 Mg Cap) 220 mg PO DAILY [facility] Last Admin: 06/04/18 09:51 Dose: 220 mg - Labs Labs: 06/01/18 08:39 06/02/18 07:00 PT 12.6 SECONDS (9.7-12.2) H 06/01/18 08:39 INR 1.2 06/01/18 08:39 APTT 37 SECONDS (21-34) H 06/01/18 08:39 - Constitutional Appears: No Acute Distress, Cachectic, Chronically Ill - Head Exam Head Exam: NORMOCEPHALIC - Eye Exam Eye Exam: EOMI, PERRL - ENT Exam ENT Exam: Normal Oropharynx - Neck Exam Neck Exam: Normal Inspection - Respiratory Exam Respiratory Exam: Clear to Ausculation Bilateral - Cardiovascular Exam Cardiovascular Exam: REGULAR RHYTHM, +S1, +S2 - GI/Abdominal Exam GI & Abdominal Exam: Soft, Normal Bowel Sounds - Extremities Exam Extremities Exam: absent: Calf Tenderness, Pedal Edema - Back Exam Back Exam: CVA tenderness (L) - Neurological Exam Neurological Exam: Awake, CN II-XII Intact - Psychiatric Exam Psychiatric exam: Flat Affect - Skin Skin Exam: Normal Color, Warm (dec.ulcers trochanteric/sacral dressing in place.) Assessment and Plan (1) Decubital ulcer Status: Acute (2) Sacral ulcer Status: Acute (3) Failure to thrive Status: Acute (4) UTI (urinary tract infection) Status: Acute - Assessment and Plan (Free Text) Plan: CONTINUE iv ZOSYN 3.375 EVERY 8 HOURLY 05/30/18 x 2 weeks from discharge CONTINUE iv VANCOMYCIN 1 G EVERY 24 HOURLY.05/30/18. 2 weeks from discharge- F/U WITH BY MOUTH CIPRO 500 TWICE A DAY X2WKS. F/U vANCO TROUGH PRIOR TO THE THIRD DOSE AND KEEP BETWEEN 10 AND 20 MG/ML. pt has PUREWICK CATHETHER PT INCONTINENT mONITOR RENAL FUNCTIONS CLOSELY. PATIENT FOR SUBACUTE REHABILITATION PER ELECTRICAL PARTS RECONDITIONER. LWC PER SURGERY. wILL FOLLOW THE PATIENT WHILE IN HOSPITAL.
--- NOTE | 2018-06-04 17:33 | CP.PCM.PN ---
Subjective - Date & Time of Evaluation Date of Evaluation: 06/04/18 Time of Evaluation: 17:33 - Subjective Subjective: pt is feeling ok no chest pain eating ok pt will need to have antibiotics will f/u Objective - Vital Signs/Intake and Output Vital Signs (last 24 hours): Temp Pulse Resp BP Pulse Ox 97.6 F 83 18 117/73 96 06/04/18 16:00 06/04/18 16:00 06/04/18 16:00 06/04/18 16:00 06/04/18 16:00 Intake and Output: 06/04/18 06/04/18 06:59 18:59 Intake Total 420 1210 Output Total 3 Balance 420 1207 - Medications Medications: Current Medications Ascorbic Acid (Vitamin C 500 Mg Tab) 500 mg PO DAILY [facility] Last Admin: 06/04/18 09:51 Dose: 500 mg Piperacillin Sod/Tazobactam Sod (Zosyn 3.375 Gm Iv Premix) 3.375 gm in 50 mls @ 100 mls/hr IVPB Q8 [facility]; Protocol Last Admin: 06/04/18 14:26 Dose: 100 mls/hr Vancomycin/Sodium Chloride (Vancomycin 1 Gm/Ns 200 Ml) 1 gm in 200 mls @ 133 mls/hr IVPB Q24H [facility]; Protocol Stop: 06/09/18 07:01 Last Admin: 06/04/18 07:54 Dose: 133 mls/hr Potassium Phos/Sodium Phos (Neutra-Phos) 1 pkt PO BID [facility] Last Admin: 06/04/18 09:51 Dose: 1 pkt Zinc Sulfate (Zinc Sulfate 220 Mg Cap) 220 mg PO DAILY [facility] Last Admin: 06/04/18 09:51 Dose: 220 mg - Labs Labs: 06/01/18 08:39 06/02/18 07:00 PT 12.6 SECONDS (9.7-12.2) H 06/01/18 08:39 INR 1.2 06/01/18 08:39 APTT 37 SECONDS (21-34) H 06/01/18 08:39
[2018-06-05 00:35] VITALS: RESP 20
[2018-06-05] MEDS: Piperacill/Tazo 3.375gm in Dex 3.375 GM/50 ML BAG IVPB SCH ×3 (05:50→21:06)
[2018-06-05] MEDS: Vancomycin 1 gm/NS 200 ml 1 GM/200 ML BAG IVPB SCH (06:46)
[2018-06-05 09:05] LABS: BASO # 0.1 K/uL (0.0-0.2); BASO % 0.8 % (0.0-2.0); EOS # 0.6 K/uL (0.0-0.7); EOS % 6.1 % (0.0-4.0); HEMOGLOBIN 9.1 g/dL (11.0-16.0); LYMPH # 1.8 K/uL (1.0-4.3); MEAN CELL VOLUME 90.4 fL (81.0-99.0); MEAN CORPUSCULAR HEMOGLOBIN 30.3 pg (27.0-31.0); MEAN CORPUSCULAR HGB CONC 33.6 g/dL (33.0-37.0); MONO # 0.7 K/uL (0.0-0.8); MONO % 7.7 % (0.0-10.0); NEUT # 6.4 K/uL (1.8-7.0); NEUT % 66.4 % (50.0-75.0); RBC 2.99 Mil/uL (3.80-5.20); RED CELL DISTRIBUTION WIDTH 15.6 % (11.5-14.5); WHITE BLOOD COUNT 9.6 K/uL (4.8-10.8)
[2018-06-05 09:27] LABS: ALB/GLOB RATIO 0.7 (1.0-2.1); ALBUMIN 1.8 g/dL (3.5-5.0); ALT/SGPT 20 U/L (9-52); AST/SGOT 27 U/L (14-36); BLOOD UREA NITROGEN 7 mg/dL (7-17); GFR NON-AFRICAN AMERICAN > 60
[2018-06-05] MEDS: Potassium & Sodium Phosphate PO SCH ×2 (11:00→17:36)
[2018-06-05] MEDS ORDERED: Magnesium Sulfate 1 gm in D5W 1 GM/100 ML BAG IVPB ONE (13:00)
[2018-06-05] MEDS ORDERED: Potassium Chloride 20 mEq ER Tab PO ONE (13:15)
--- NOTE | 2018-06-05 14:28 | CP.PCM.PN ---
Subjective - Date & Time of Evaluation Date of Evaluation: 06/05/18 Time of Evaluation: 14:28 - Subjective Subjective: afebrile no acute events overnight. ON IV ABX. patient has sacral and trochanteric decubitus ulcers s/p debridement. Case discussed with bottle caser/staff. Patient will need IV antibiotics x 2 weeks f/u by oral antibiotics -Cipro 500 twice a day for 2 weeks LWC as per surgery PT FOR WOUND VAC WHILE IN [facility] PER SURGERY. Objective - Vital Signs/Intake and Output Vital Signs (last 24 hours): Temp Pulse Resp BP Pulse Ox 98.4 F 75 20 107/60 95 06/05/18 10:24 06/05/18 10:24 06/05/18 10:24 06/05/18 10:24 06/05/18 10:24 Intake and Output: 06/05/18 06/05/18 06:59 18:59 Intake Total 1260 Balance 1260 - Medications Medications: Current Medications Ascorbic Acid (Vitamin C 500 Mg Tab) 500 mg PO DAILY [facility] Last Admin: 06/05/18 11:00 Dose: 500 mg Piperacillin Sod/Tazobactam Sod (Zosyn 3.375 Gm Iv Premix) 3.375 gm in 50 mls @ 100 mls/hr IVPB Q8 [facility]; Protocol Last Admin: 06/05/18 05:50 Dose: 100 mls/hr Vancomycin/Sodium Chloride (Vancomycin 1 Gm/Ns 200 Ml) 1 gm in 200 mls @ 133 mls/hr IVPB Q24H [facility]; Protocol Stop: 06/09/18 07:01 Last Admin: 06/05/18 06:46 Dose: 133 mls/hr Potassium Phos/Sodium Phos (Neutra-Phos) 1 pkt PO BID [facility] Last Admin: 06/05/18 11:00 Dose: 1 pkt Zinc Sulfate (Zinc Sulfate 220 Mg Cap) 220 mg PO DAILY [facility] Last Admin: 06/05/18 11:00 Dose: 220 mg - Labs Labs: 06/05/18 08:49 06/05/18 08:49 PT 12.6 SECONDS (9.7-12.2) H 06/01/18 08:39 INR 1.2 06/01/18 08:39 APTT 37 SECONDS (21-34) H 06/01/18 08:39 - Constitutional Appears: No Acute Distress, Cachectic, Chronically Ill - Head Exam Head Exam: NORMAL INSPECTION - Eye Exam Eye Exam: EOMI, PERRL - ENT Exam ENT Exam: Normal Oropharynx - Neck Exam Neck Exam: Normal Inspection - Respiratory Exam Respiratory Exam: Clear to Ausculation Bilateral - Cardiovascular Exam Cardiovascular Exam: REGULAR RHYTHM, +S1, +S2 - GI/Abdominal Exam GI & Abdominal Exam: Soft, Normal Bowel Sounds - Extremities Exam Extremities Exam: absent: Calf Tenderness, Pedal Edema (EXT. CONRACTED.) - Neurological Exam Neurological Exam: Awake, CN II-XII Intact - Psychiatric Exam Psychiatric exam: Flat Affect, Normal Mood - Skin Skin Exam: Normal Color, Warm Assessment and Plan (1) Decubital ulcer Status: Acute (2) Sacral ulcer Status: Acute (3) Failure to thrive Status: Acute (4) UTI (urinary tract infection) Status: Acute - Assessment and Plan (Free Text) Plan: CONTINUE iv ZOSYN 3.375 EVERY 8 HOURLY 05/30/18 x 2 weeks from discharge CONTINUE iv VANCOMYCIN 1 G EVERY 24 HOURLY.05/30/18. 2 weeks from discharge- F/U WITH BY MOUTH CIPRO 500 TWICE A DAY X2WKS. F/U vANCO TROUGH PRIOR TO THE THIRD DOSE AND KEEP BETWEEN 10 AND 20 MG/ML. pt has PUREMTCK CATHETHER PT INCONTINENT MONITOR RENAL FUNCTIONS CLOSELY. PATIENT FOR SUBACUTE REHABILITATION TODAY PER NUCLEAR MEDICINE OFFICER. LWC PER SURGERY. wILL FOLLOW THE PATIENT WHILE IN HOSPITAL.
--- NOTE | 2018-06-05 17:16 | CP.PCM.PCO ---
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 Dionte Rea PGY1
[2018-06-06] MEDS: Vancomycin 1 gm/NS 200 ml 1 GM/200 ML BAG IVPB SCH (06:09)
[2018-06-06] MEDS: Potassium & Sodium Phosphate PO SCH ×2 (10:16→18:12)
--- NOTE | 2018-06-06 12:21 | PCM.SURG1 ---
Surgeon's Initial Post Op Note - Surgeon's Notes Surgeon: Jose Escobar MD Population Geneticist: NONE Type of Anesthesia: Local Pre-Operative Diagnosis: Poor venous access Operative Findings: US showed a patent right basilic vein Post-Operative Diagnosis: Poor venous access Operation Performed: Single lumen picc placement right arm, 34 cm. Tip is in the SVC. Specimen/Specimens Removed: NONE Estimated Blood Loss: EBL {In ML}: 2 Blood Products Given: N/A Drains Used: No Drains Post-Op Condition: Fair Date of Surgery/Procedure: 06/06/18 Time of Surgery/Procedure: 12:20
--- NOTE | 2018-06-06 20:09 | CP.PCM.PN ---
Subjective - Date & Time of Evaluation Date of Evaluation: 06/06/18 Time of Evaluation: 20:08 - Subjective Subjective: I spoke to the patient's son this morning. Today patient underwent PICC line. Patient will need antibiotic at least 10 days. Wound is being managed by the wound care. Daily dressing and wound management. Vital signs stable. Patient is able to eat better. We will continue the current treatment Patient is 82-year-old female with a history of dementia. Contractures. Bedridden. Admitted with the sacral decubiti, bilateral ischial, tibial decubiti. On antibiotic. Stable clinically. Awaiting for rehab Objective - Vital Signs/Intake and Output Vital Signs (last 24 hours): Temp Pulse Resp BP Pulse Ox 98.4 F 89 20 141/74 97 06/06/18 16:00 06/06/18 16:00 06/06/18 16:00 06/06/18 16:00 06/06/18 16:00 Intake and Output: 06/06/18 06/07/18 18:59 06:59 Intake Total 50 Balance 50 - Medications Medications: Current Medications Ascorbic Acid (Vitamin C 500 Mg Tab) 500 mg PO DAILY [facility] Last Admin: 06/06/18 10:16 Dose: 500 mg Vancomycin/Sodium Chloride (Vancomycin 1 Gm/Ns 200 Ml) 1 gm in 200 mls @ 133 mls/hr IVPB Q24H [facility]; Protocol Stop: 06/09/18 07:01 Last Admin: 06/06/18 06:09 Dose: 133 mls/hr Potassium Phos/Sodium Phos (Neutra-Phos) 1 pkt PO BID [facility] Last Admin: 06/06/18 18:12 Dose: 1 pkt Zinc Sulfate (Zinc Sulfate 220 Mg Cap) 220 mg PO DAILY [facility] Last Admin: 06/06/18 10:16 Dose: 220 mg - Labs Labs: 06/05/18 08:49 06/05/18 08:49 PT 12.6 SECONDS (9.7-12.2) H 06/01/18 08:39 INR 1.2 06/01/18 08:39 APTT 37 SECONDS (21-34) H 06/01/18 08:39
--- NOTE | 2018-06-06 23:51 | CP.PCM.PN ---
Subjective - Date & Time of Evaluation Date of Evaluation: 06/06/18 Time of Evaluation: 23:51 - Subjective Subjective: afebrile, S/P SINGLE LUMEN PICC LINE AWAKE' NO NEW EVENTS ON IV ABX OUTLINE LWC DEC ULCERS. PT AWAITING MARISSA Objective - Vital Signs/Intake and Output Vital Signs (last 24 hours): Temp Pulse Resp BP Pulse Ox 98.4 F 89 20 141/74 97 06/06/18 16:00 06/06/18 16:00 06/06/18 16:00 06/06/18 16:00 06/06/18 16:00 Intake and Output: 06/06/18 06/07/18 18:59 06:59 Intake Total 50 200 Balance 50 200 - Medications Medications: Current Medications Ascorbic Acid (Vitamin C 500 Mg Tab) 500 mg PO DAILY [facility] Last Admin: 06/06/18 10:16 Dose: 500 mg Vancomycin/Sodium Chloride (Vancomycin 1 Gm/Ns 200 Ml) 1 gm in 200 mls @ 133 mls/hr IVPB Q24H [facility]; Protocol Stop: 06/09/18 07:01 Last Admin: 06/06/18 06:09 Dose: 133 mls/hr Potassium Phos/Sodium Phos (Neutra-Phos) 1 pkt PO BID [facility] Last Admin: 06/06/18 18:12 Dose: 1 pkt Zinc Sulfate (Zinc Sulfate 220 Mg Cap) 220 mg PO DAILY [facility] Last Admin: 06/06/18 10:16 Dose: 220 mg - Labs Labs: 06/05/18 08:49 06/05/18 08:49 PT 12.6 SECONDS (9.7-12.2) H 06/01/18 08:39 INR 1.2 06/01/18 08:39 APTT 37 SECONDS (21-34) H 06/01/18 08:39 - Constitutional Appears: No Acute Distress, Cachectic, Chronically Ill - Eye Exam Eye Exam: EOMI, PERRL - ENT Exam ENT Exam: Normal Oropharynx - Neck Exam Neck Exam: Normal Inspection - Respiratory Exam Respiratory Exam: Clear to Ausculation Bilateral - Cardiovascular Exam Cardiovascular Exam: REGULAR RHYTHM, +S1, +S2 - GI/Abdominal Exam GI & Abdominal Exam: Soft, Normal Bowel Sounds - Extremities Exam Extremities Exam: Normal Capillary Refill. absent: Calf Tenderness, Pedal Edema - Neurological Exam Neurological Exam: Awake (EXTREMITIES CONTRACTED.), CN II-XII Intact - Psychiatric Exam Psychiatric exam: Flat Affect - Skin Skin Exam: Normal Color, Warm Assessment and Plan (1) Decubital ulcer Status: Acute (2) Sacral ulcer Status: Acute (3) Failure to thrive Status: Acute (4) UTI (urinary tract infection) Status: Acute - Assessment and Plan (Free Text) Plan: CONTINUE iv ZOSYN 3.375 EVERY 8 HOURLY 05/30/18 x 2 weeks from discharge CONTINUE iv VANCOMYCIN 1 G EVERY 24 HOURLY.05/30/18. 2 weeks from discharge- F/U WITH BY MOUTH CIPRO 500 TWICE A DAY X2WKS. F/U vANCO TROUGH PRIOR TO THE THIRD DOSE AND KEEP BETWEEN 10 AND 20 MG/ML. pt has PUREWICK CATHETHER PT INCONTINENT MONITOR RENAL FUNCTIONS CLOSELY. PATIENT FOR SUBACUTE REHABILITATION PER INJECTION MOLDING MACHINE TENDER. LWC PER SURGERY. wILL FOLLOW THE PATIENT WHILE IN HOSPITAL.
[2018-06-07 01:17] VITALS: O2SAT 95
[2018-06-07] MEDS: Vancomycin 1 gm/NS 200 ml 1 GM/200 ML BAG IVPB SCH (06:07)
[2018-06-07 07:52] VITALS: BP 140/80; PULSE 98; TEMP 99.3
[2018-06-07] MEDS: Magnesium Sulfate 1 gm in D5W 1 GM/100 ML BAG IVPB SCH ×2 (09:12→11:36)
[2018-06-07] MEDS: Potassium & Sodium Phosphate PO SCH (11:36)
--- NOTE | 2018-06-07 13:57 | RAD ---
PROCEDURE: Date of procedure: 06/06/2018 Procedure: 1. Placement of a right arm PICC with ultrasound and fluoroscopic guidance, CPT 91914 2. PICC tip confirmation with spot radiograph and is in the superior vena cava Medications: 1 percent lidocaine Total Fluoro time: 22.2 Seconds Radiation: 6.4 MGy EBL: 2 cc HISTORY: Infection requiring long-term IV antibiotics TECHNIQUE: Following informed consent and procedure time-out, the patient was placed supine on the interventional table and the right arm prepped and draped in the usual sterile fashion. Ultrasound showed a patent and compressible right basilic vein. After the skin was anesthetized with lidocaine, the basilic vein was accessed with micro micropuncture technique using ultrasound guidance. A guidewire was then advanced under fluoroscopic guidance into the superior vena cava. An image documenting ultrasound guidance for vascular access was permanently saved. The length of the single-lumen 4 [place] PICC was trimmed to 33 centimeters and advanced through a peel-away sheath. The PICC was position with tip of PICC confirm a spot radiograph the superior vena cava. The PICC was secured to the patient's skin. The PICC was flushed. A biopatch and sterile dressing was applied. IMPRESSION: Placement of a single-lumen 4 [place] PICC trimmed to 33 centimeters via right basilic vein. The tip of the PICC is confirmed with spot radiograph and is in the superior vena cava.
--- NOTE | 2018-06-07 14:01 | US ---
Date of procedure: 06/06/2018 Procedure: Ultrasound guidance for vascular access HISTORY: Infection requiring long-term IV antibiotics TECHNIQUE: Following informed consent and procedure time-out, the patient placed supine on the interventional table and the right arm prepped and draped in the usual sterile fashion. Ultrasound showed a patent and compressible basilic vein. After the skin was anesthetized with lidocaine, the basilic vein was accessed with micro micropuncture technique using ultrasound guidance. An image documenting ultrasound guidance for vascular access was permanently saved. IMPRESSION: Ultrasound guidance for vascular access for placement of PICC.
--- NOTE | 2018-06-07 15:15 | CP.PCM.DIS ---
Provider - Provider Date of Admission: 05/30/18 11:57 Attending physician: Nikita Jj MD Consults: 05/30/18 20:48 Case Management Referral Routine Comment: Physician Instructions: Reason For Exam: Reason for Referral: Discharge Planning Nursing Referral for Wound Care Routine Comment: Physician Instructions: sacral area Reason For Exam: pt with unstageable wounds on bilateral hip and 05/30/18 21:37 General Surgery Consult Routine Comment: Consulting Provider: Migue Rapp Consulting Physician: Migue Rapp Reason for Consult: decubiti Infectious Disease Consult Routine Comment: Consulting Provider: Rosemary Vidal Consulting Physician: Rosemary Vidal Reason for Consult: decubiti Time Spent in preparation of Discharge (in minutes): 45 Hospital Course - Lab Results Lab Results: Micro Results 05/30/18 12:04 Blood Blood Culture - Final NO GROWTH AFTER 5 DAYS 05/30/18 12:04 Blood Gram Stain - Final TEST NOT PERFORMED 05/30/18 11:19 Blood Blood Culture - Final NO GROWTH AFTER 5 DAYS 05/30/18 11:19 Blood Gram Stain - Final TEST NOT PERFORMED 05/30/18 12:08 Hip - Left Gram Stain - Final 05/30/18 12:08 Hip - Left Wound Culture - Final Escherichia Coli Enterococcus Faecalis Staphylococcus Aureus 05/30/18 12:08 Urine,Catheterized Urine Culture - Final Pseudomonas Aeruginosa Most Recent Lab Values WBC 9.6 K/uL (4.8-10.8) 06/05/18 08:49 RBC 2.99 Mil/uL (3.80-5.20) L 06/05/18 08:49 Hgb 9.1 g/dL (11.0-16.0) L 06/05/18 08:49 Hct 27.1 % (34.0-47.0) L 06/05/18 08:49 MCV 90.4 fL (81.0-99.0) 06/05/18 08:49 MCH 30.3 pg (27.0-31.0) 06/05/18 08:49 MCHC 33.6 g/dL (33.0-37.0) 06/05/18 08:49 RDW 15.6 % (11.5-14.5) H 06/05/18 08:49 Plt Count 330 K/uL (130-400) 06/05/18 08:49 MPV 8.0 fL (7.2-11.7) 06/05/18 08:49 Neut % (Auto) 66.4 % (50.0-75.0) 06/05/18 08:49 Lymph % (Auto) 19.0 % (20.0-40.0) L 06/05/18 08:49 [place] % (Auto) 7.7 % (0.0-10.0) 06/05/18 08:49 Eos % (Auto) 6.1 % (0.0-4.0) H 06/05/18 08:49 Baso % (Auto) 0.8 % (0.0-2.0) 06/05/18 08:49 Neut # (Auto) 6.4 K/uL (1.8-7.0) 06/05/18 08:49 Lymph # (Auto) 1.8 K/uL (1.0-4.3) 06/05/18 08:49 [place] # (Auto) 0.7 K/uL (0.0-0.8) 06/05/18 08:49 Eos # (Auto) 0.6 K/uL (0.0-0.7) 06/05/18 08:49 Baso # (Auto) 0.1 K/uL (0.0-0.2) 06/05/18 08:49 PT 12.6 SECONDS (9.7-12.2) H 06/01/18 08:39 INR 1.2 06/01/18 08:39 APTT 37 SECONDS (21-34) H 06/01/18 08:39 Sodium 136 mmol/L (132-148) 06/05/18 08:49 Potassium 3.1 mmol/L (3.6-5.2) L 06/05/18 08:49 Chloride 110 mmol/L (98-107) H 06/05/18 08:49 Carbon Dioxide 23 mmol/L (22-30) 06/05/18 08:49 Anion Gap 6 (10-20) L 06/05/18 08:49 BUN 7 mg/dL (7-17) 06/05/18 08:49 Creatinine 0.5 mg/dL (0.7-1.2) L 06/05/18 08:49 Est GFR ( Amer) > 60 06/05/18 08:49 Est GFR (Non-Af Amer) > 60 06/05/18 08:49 POC Glucose (mg/dL) 101 mg/dL (65-110) 06/02/18 11:10 Random Glucose 100 mg/dL (65-105) D 06/05/18 08:49 Calcium 7.0 mg/dl (8.6-10.4) L 06/05/18 08:49 Phosphorus 2.5 mg/dL (2.5-4.5) 06/02/18 07:00 Magnesium 1.5 mg/dL (1.6-2.3) L 06/05/18 08:49 Total Bilirubin 0.2 mg/dL (0.2-1.3) 06/05/18 08:49 AST 27 U/L (14-36) 06/05/18 08:49 ALT 20 U/L (9-52) 06/05/18 08:49 Alkaline Phosphatase 55 U/L (38-126) 06/05/18 08:49 Total Protein 4.3 g/dL (6.3-8.3) L 06/05/18 08:49 Albumin 1.8 g/dL (3.5-5.0) L 06/05/18 08:49 Globulin 2.5 gm/dL (2.2-3.9) 06/05/18 08:49 Albumin/Globulin Ratio 0.7 (1.0-2.1) L 06/05/18 08:49 Urine Color Yellow (YELLOW) 05/30/18 12:02 Urine Clarity Turbid (Clear) 05/30/18 12:02 Urine pH 5.0 (5.0-8.0) 05/30/18 12:02 Ur Specific [place] 1.017 (1.003-1.030) 05/30/18 12:02 Urine Protein 3+ mg/dL (NEGATIVE) H 05/30/18 12:02 Urine Glucose (UA) Normal mg/dL (Normal) 05/30/18 12:02 Urine Ketones Negative mg/dL (NEGATIVE) 05/30/18 12:02 Urine Blood 1+ (NEGATIVE) H 05/30/18 12:02 Urine Nitrate Negative (NEGATIVE) 05/30/18 12:02 Urine Bilirubin Negative (NEGATIVE) 05/30/18 12:02 Urine Urobilinogen 4.0 mg/dL (0.2-1.0) H 05/30/18 12:02 Ur Leukocyte Esterase 2+ [place]/uL (Negative) H 05/30/18 12:02 Urine WBC (Auto) 8071 /hpf (0-5) H 05/30/18 12:02 Urine RBC (Auto) 102 /hpf (0-3) H 05/30/18 12:02 Urine WBC Clumps (Auto) Many /hpf (NONE) H 05/30/18 12:02 Ur Squamous Epith Cells 31 /hpf (0-5) H 05/30/18 12:02 Amorphous Sediment Few /ul (<OCC) H 05/30/18 12:02 Urine Bacteria Many (<OCC) H 05/30/18 12:02 Vancomycin Trough 19.6 ug/mL (5.0-10.0) H 06/04/18 06:22 - Hospital Course Hospital Course: Chief complaint: Worsening sacral decubiti HPI: Patient is a 82-year-old female with history of anemia in the past, and also recent history of left trochanteric fracture, status post ORIF, following that the patient become mostly bedbound, in the house. Postoperatively patient was in the hospital, and was sent to home and received physical exercise and therapy in the house. Initially she was doing well. But later she started having worsening overall condition. Family was taking care of her in the house. Patient was recently hospitalized, at that time patient was having multiple but sacral decubiti, bilateral iliac crest decubiti, as well as heel ulcers noted. Patient at home being taken care of by wound nurse. Getting treatment on a daily basis. In spite of that patient still having worsening bilateral iliac crest trochanteric area ulcers. Foul-smelling discharge noted. Patient also been becoming more lethargic and weak. But the leg ulcer is improving markedly. Past medical history: Dementia, hypertension, anemia. Allergy no known drug allergy Personal history non-smoker nonalcoholic Patient is currently living in the house with the family. Review of system: Patient is somewhat confused. Dementia noted. Patient also has a severe contracted knees on bilateral. skin wounds noted. On examination: Patient is somewhat confused. Disoriented. Answering simple questions. Weight loss noted. Patient is somewhat dehydrated. Mucous membrane dryness noted. Chest good air entry Regular heart sounds Nontender abdomen. Patient has at least quarter size sacral decubiti involving in the sacral area, with the surrounding erythema. Also there is a bilateral trochanteric area significant sacral decubiti, associated with the foul-smelling discharge as well as skin eschar is noted, slough noted Patient labs reviewed Urine analysis showing evidence of possible UTI Elevated WBC noted Assessment: 82-year-old female with a history of anemia. History of dementia. Recent hip fracture. Now complicated with contractures of the bilateral knee and hips. Also bedridden. Now with worsening sacral decubiti. Malnourishment. Poor nutrition. Urinary tract infection likely acute associate with the some altered mental status mild. I suggested that patient needs to get antibiotic. Patient will need evaluation by the surgeon management. DVT prophylaxis. Feeding with assistance. Aspiration precautions. Infectious disease evaluation needed. Patient also has a possible sepsis associated with the sacral decubiti. Infected decubiti noted. Pressure ulcers. Surgical evaluation for possible debridement, as well as wound VAC. Wound management. We will follow the patient Course in the hospital: Patient was hospitalized to the medical floor. Patient had elevated white count. Systemic sepsis was noted. Infectious disease evaluation was called in. Surgical evaluation as well as wound care management called. Patient is having slow improvement in the WBC. Wound debridement was done by the surgical team. Wound culture showing evidence of Pseudomonas, and multiple organisms noted. Recently. patient is with a PICC line. As per infectious disease patient will need intravenous vancomycin 1 g daily for 2 weeks. Zosyn 3.275 g IV every 8 hourly. Following that ciprofloxacin 500 mg. Patient will need wound VAC. I spoke to the patient's son in detail. Patient will also need assistance in feeding. Aspiration precautions. DVT precautions recommended. Patient will follow-up as an outpatient. Rehabilitation necessary. Final diagnosis: Advanced dementia. Sepsis. Infected sacral decubiti, bilateral trochanteric decubiti. Status post wound debridement. Multiple organisms localized cellulitis. We will follow the patient Discharge Exam - Head Exam Head Exam: NORMAL INSPECTION Discharge Plan - Discharge Medications Prescriptions: Ciprofloxacin [Cipro] 500 mg PO BID #28 tab Vancomycin/0.9 % Sod Chloride [Vanco 1 Gram/150 ml-0.9% NaCl] 1 gm IV DAILY 12 Days plast..bag Ascorbic Acid [Vitamin C 500 mg Tab] 500 mg PO TID #90 tab Piperacill/Tazo 3.375gm in Dex [Zosyn 3.375 Gm IV] 3.375 gm IVPB Q8 12 Days bag - Follow Up Plan Condition: GOOD Disposition: HOME/ ROUTINE
--- NOTE | 2018-06-07 15:25 | CP.PCM.PN ---
Subjective - Date & Time of Evaluation Date of Evaluation: 06/02/18 Time of Evaluation: 15:25 - Subjective Subjective: patient was seen by surgical team. Infectious disease team. Wound culture is currently pending. Currently patient is awake and responding. Localized edema in the legs as well as in the arms noted. On examination: Vital signs stable. Chest good air entry Regular heart sounds. Abdominal tenderness negative Edema noted Patient is 82-year-old female advanced dementia contractures. Bedridden. Sacral decubiti. Recently had a hip fracture. We will continue the current treatment antibiotic as per infectious disease. Wound debridement will follow the patient and wound management Objective - Vital Signs/Intake and Output Vital Signs (last 24 hours): Temp Pulse Resp BP Pulse Ox 99.3 F 98 H 20 140/80 95 06/07/18 07:49 06/07/18 07:49 06/07/18 07:49 06/07/18 07:49 06/07/18 07:49 Intake and Output: 06/07/18 06/07/18 06:59 18:59 Intake Total 520 440 Balance 520 440 - Medications Medications: Current Medications Ascorbic Acid (Vitamin C 500 Mg Tab) 500 mg PO DAILY [facility] Last Admin: 06/07/18 11:39 Dose: 500 mg Vancomycin/Sodium Chloride (Vancomycin 1 Gm/Ns 200 Ml) 1 gm in 200 mls @ 133 mls/hr IVPB Q24H [facility]; Protocol Stop: 06/09/18 07:01 Last Admin: 06/07/18 06:07 Dose: 133 mls/hr Potassium Phos/Sodium Phos (Neutra-Phos) 1 pkt PO BID [facility] Last Admin: 06/07/18 11:36 Dose: 1 pkt Zinc Sulfate (Zinc Sulfate 220 Mg Cap) 220 mg PO DAILY [facility] Last Admin: 06/07/18 11:36 Dose: 220 mg - Labs Labs: 06/05/18 08:49 06/05/18 08:49 PT 12.6 SECONDS (9.7-12.2) H 06/01/18 08:39 INR 1.2 06/01/18 08:39 APTT 37 SECONDS (21-34) H 06/01/18 08:39
--- NOTE | 2018-06-07 15:25 | CP.PCM.PN ---
Subjective - Date & Time of Evaluation Date of Evaluation: 06/01/18 Time of Evaluation: 15:25 - Subjective Subjective: patient was seen by surgical team. Infectious disease team. Wound culture is currently pending. Currently patient is awake and responding. Localized edema in the legs as well as in the arms noted. On examination: Vital signs stable. Chest good air entry Regular heart sounds. Abdominal tenderness negative Edema noted Patient is 82-year-old female advanced dementia contractures. Bedridden. Sacral decubiti. Recently had a hip fracture. We will continue the current treatment antibiotic as per infectious disease. Wound debridement will follow the patient and wound management Objective - Vital Signs/Intake and Output Vital Signs (last 24 hours): Temp Pulse Resp BP Pulse Ox 99.3 F 98 H 20 140/80 95 06/07/18 07:49 06/07/18 07:49 06/07/18 07:49 06/07/18 07:49 06/07/18 07:49 Intake and Output: 06/07/18 06/07/18 06:59 18:59 Intake Total 520 440 Balance 520 440 - Medications Medications: Current Medications Ascorbic Acid (Vitamin C 500 Mg Tab) 500 mg PO DAILY [facility] Last Admin: 06/07/18 11:39 Dose: 500 mg Vancomycin/Sodium Chloride (Vancomycin 1 Gm/Ns 200 Ml) 1 gm in 200 mls @ 133 mls/hr IVPB Q24H [facility]; Protocol Stop: 06/09/18 07:01 Last Admin: 06/07/18 06:07 Dose: 133 mls/hr Potassium Phos/Sodium Phos (Neutra-Phos) 1 pkt PO BID [facility] Last Admin: 06/07/18 11:36 Dose: 1 pkt Zinc Sulfate (Zinc Sulfate 220 Mg Cap) 220 mg PO DAILY [facility] Last Admin: 06/07/18 11:36 Dose: 220 mg - Labs Labs: 06/05/18 08:49 06/05/18 08:49 PT 12.6 SECONDS (9.7-12.2) H 06/01/18 08:39 INR 1.2 06/01/18 08:39 APTT 37 SECONDS (21-34) H 06/01/18 08:39
--- NOTE | 2018-06-07 15:25 | CP.PCM.PN ---
Subjective - Date & Time of Evaluation Date of Evaluation: 06/03/18 Time of Evaluation: 15:25 - Subjective Subjective: Patient is slowly responding with WBC improvement. Significant malnourishment noted. Albumin is low. Electrolytes also low side On examination: Vital signs stable. Chest good air entry regular Hs nontender abdomen. Contractures in the legs noted Labs reviewed Vancomycin and Zosyn on. Discussed with the surgical day. Objective - Vital Signs/Intake and Output Vital Signs (last 24 hours): Temp Pulse Resp BP Pulse Ox 99.3 F 98 H 20 140/80 95 06/07/18 07:49 06/07/18 07:49 06/07/18 07:49 06/07/18 07:49 06/07/18 07:49 Intake and Output: 06/07/18 06/07/18 06:59 18:59 Intake Total 520 440 Balance 520 440 - Medications Medications: Current Medications Ascorbic Acid (Vitamin C 500 Mg Tab) 500 mg PO DAILY [facility] Last Admin: 06/07/18 11:39 Dose: 500 mg Vancomycin/Sodium Chloride (Vancomycin 1 Gm/Ns 200 Ml) 1 gm in 200 mls @ 133 mls/hr IVPB Q24H [facility]; Protocol Stop: 06/09/18 07:01 Last Admin: 06/07/18 06:07 Dose: 133 mls/hr Potassium Phos/Sodium Phos (Neutra-Phos) 1 pkt PO BID [facility] Last Admin: 06/07/18 11:36 Dose: 1 pkt Zinc Sulfate (Zinc Sulfate 220 Mg Cap) 220 mg PO DAILY [facility] Last Admin: 06/07/18 11:36 Dose: 220 mg - Labs Labs: 06/05/18 08:49 06/05/18 08:49 PT 12.6 SECONDS (9.7-12.2) H 06/01/18 08:39 INR 1.2 06/01/18 08:39 APTT 37 SECONDS (21-34) H 06/01/18 08:39
--- NOTE | 2018-06-07 15:26 | CP.PCM.PN ---
Subjective - Date & Time of Evaluation Date of Evaluation: 06/05/18 Time of Evaluation: 15:26 - Subjective Subjective: patient today being assisted for feeding. Family at bedside. Spoke to the patient's daughter in detail. Patient will be getting the PICC line. Intravenous antibiotic as per ID. Possible discharge plan to rehab. Spoke to the family in detail. Objective - Vital Signs/Intake and Output Vital Signs (last 24 hours): Temp Pulse Resp BP Pulse Ox 99.3 F 98 H 20 140/80 95 06/07/18 07:49 06/07/18 07:49 06/07/18 07:49 06/07/18 07:49 06/07/18 07:49 Intake and Output: 06/07/18 06/07/18 06:59 18:59 Intake Total 520 440 Balance 520 440 - Medications Medications: Current Medications Ascorbic Acid (Vitamin C 500 Mg Tab) 500 mg PO DAILY [facility] Last Admin: 06/07/18 11:39 Dose: 500 mg Vancomycin/Sodium Chloride (Vancomycin 1 Gm/Ns 200 Ml) 1 gm in 200 mls @ 133 mls/hr IVPB Q24H [facility]; Protocol Stop: 06/09/18 07:01 Last Admin: 06/07/18 06:07 Dose: 133 mls/hr Potassium Phos/Sodium Phos (Neutra-Phos) 1 pkt PO BID [facility] Last Admin: 06/07/18 11:36 Dose: 1 pkt Zinc Sulfate (Zinc Sulfate 220 Mg Cap) 220 mg PO DAILY [facility] Last Admin: 06/07/18 11:36 Dose: 220 mg - Labs Labs: 06/05/18 08:49 06/05/18 08:49 PT 12.6 SECONDS (9.7-12.2) H 06/01/18 08:39 INR 1.2 06/01/18 08:39 APTT 37 SECONDS (21-34) H 06/01/18 08:39
== END 2018-06-07 17:18 | DRG 853 ==
LOC: C.ER 10:24 → C.9E 11:57 → C.3T 14:38
PROVIDERS: ADMIT Internal Medicine; ATTEND Internal Medicine
PROC: 0JBM0ZZ Excision of Left Upper Leg Subcutaneous Tissue and Fascia, Open Approach (ICD-10-PCS; principal; 2018-05-31)
PROC: 0JBL0ZZ Excision of Right Upper Leg Subcutaneous Tissue and Fascia, Open Approach (ICD-10-PCS; 2018-05-31)
PROC: 02HV33Z Insertion of Infusion Device into Superior Vena Cava, Percutaneous Approach (ICD-10-PCS; 2018-06-06)
PROC: B518ZZA Fluoroscopy of Superior Vena Cava, Guidance (ICD-10-PCS; 2018-06-06)
PROC: B54MZZA Ultrasonography of Right Upper Extremity Veins, Guidance (ICD-10-PCS; 2018-06-06)
DX: A41.9 Sepsis, unspecified organism (principal); L89.224 Pressure ulcer of left hip, stage 4; L89.214 Pressure ulcer of right hip, stage 4; L03.116 Cellulitis of left lower limb; E46 Unspecified protein-calorie malnutrition; N39.0 Urinary tract infection, site not specified; L97.409 Non-pressure chronic ulcer of unspecified heel and midfoot with unspecified severity; R32 Unspecified urinary incontinence; R62.7 Adult failure to thrive; L89.150 Pressure ulcer of sacral region, unstageable; E86.0 Dehydration; I10 Essential (primary) hypertension; M24.562 Contracture, left knee; M24.561 Contracture, right knee; M24.552 Contracture, left hip; M24.551 Contracture, right hip; F03.90 Unspecified dementia, unspecified severity, without behavioral disturbance, psychotic disturbance, mood disturbance, and anxiety; B96.20 Unspecified Escherichia coli [E. coli] as the cause of diseases classified elsewhere; B95.61 Methicillin susceptible Staphylococcus aureus infection as the cause of diseases classified elsewhere; B95.2 Enterococcus as the cause of diseases classified elsewhere; B96.5 Pseudomonas (aeruginosa) (mallei) (pseudomallei) as the cause of diseases classified elsewhere; B96.89 Other specified bacterial agents as the cause of diseases classified elsewhere; Z74.01 Bed confinement status